=== PATIENT | male | born 1995 | race Caucasian/White ===

== ENCOUNTER 2016-07-12 16:09 | Inpatient (IN) | payer SELFPAY ==
[2016-07-12] MEDS ORDERED: KEPPRA 1,000 MG/NS 0.75% 100ML 1,000 MG/100 ML BAG IV ONE ×2 (17:13→17:25)
[2016-07-12] MEDS ORDERED: NACL 0.9% 1000 ML 1,000 ML ONE (17:13)
[2016-07-12] MEDS ORDERED: NACL 0.9% 1000 ML 1,000 ML IV ONE ×2 (17:25→18:49)
[2016-07-12 17:43] LABS: Bilirubin,Urine NEG (Negative); Blood,Urine NEG (Negative); Ketones,Urine 80 mg/dL (Negative); Leukocyte Esterase,Urine NEG (Negative); Mucus,Urine FEW /HPF; Nitrite,Urine NEG (Negative); Protein,Urine <15 mg/dL mg/dL (Negative); Urobilinogen,Urine < 2.0 mg/dL (<2.0); WBC,Urine < 1.0 /HPF (0.0-6.0)
[2016-07-12 18:13] LABS: Basophils % (Auto) 0.1 % (0.0-1.8); Eosinophils % (Auto) 0.1 % (0.0-4.3); Hematocrit 45.5 % (35.5-45.6); Hemoglobin 15.1 gm/dl (11.8-15.2); Mean Corpuscular HGB Conc 33 % (32-34); Mean Corpuscular Hemoglobin 31 pg (28-32); Mean Corpuscular Volume 93 fl (84-94); Platelet Count 186 K/mm3 (140-440); Red Blood Count 4.91 M/mm3 (3.65-5.03); Red Cell Distribution Width 12.8 % (13.2-15.2); White Blood Count 8.1 K/mm3 (4.5-11.0)
[2016-07-12 18:17] LABS: Anion Gap 30 mmol/L; Blood Urea Nitrogen 13 mg/dL (9-20); Calcium 7.9 mg/dL (8.4-10.2); Carbon Dioxide 16 mmol/L (22-30); Chloride 92.4 mmol/L (98-107); Potassium 4.5 mmol/L (3.6-5.0); Sodium 134 mmol/L (137-145)
[2016-07-12 18:21] LABS: Glucose 653 mg/dL (75-100)
[2016-07-12] MEDS ORDERED: D50W (25GM) IV PRN ×3 (18:27→19:07)
--- NOTE | 2016-07-12 18:29 | Emergency Department Report ---
ED General Adult HPI - General Chief complaint: Hyperglycemia Stated complaint: SEIZURE/HBP Time Seen by Provider: 07/12/16 18:18 Source: patient, family Mode of arrival: Stretcher Limitations: No Limitations - History of Present Illness Initial comments: This is a 20-year-old male, previously unknown to me. Has a past medical history of epilepsy, diabetic ketoacidosis, DKA, diabetes, atraumatic brain injury. Recently moved here from [place]. Presents to the ER complaining of malaise, fatigue, sensation of having recurrent episode of DKA. Patient reports she is feeling nauseous but has not vomited. Positive abdominal cramping. Reports that he had a seizure today. Prior to the seizure , did not have a sudden thunderclap headache. He does admit to mild shoulder discomfort, chest wall discomfort, headache. Symptoms are constant. They worse with physical exertion, decreased with rest. Patient denies dietary indiscretions. Patient reports compliance with medications. Patient reports nausea, diarrhea, feeling like he has a stomach bug. -: Sudden Severity scale (0 -10): 0 Consistency: constant Improves with: none Worsens with: none Associated Symptoms: headaches, loss of appetite, malaise, weakness - Related Data Home Medications Medication Instructions Recorded Confirmed Last Taken Insulin Aspart [Novolog Flexpen] 60 unit SQ QHS 07/12/16 07/12/16 07/11/16 Insulin Detemir [Levemir VIAL] 0 unit SQ QHS 07/12/16 07/12/16 07/11/16 levETIRAcetam [Keppra TAB] 1,000 mg PO BID 07/12/16 07/12/16 07/11/16 Allergies Allergy/AdvReac Type Severity Reaction Status Date / Time No Known Allergies Allergy Verified 07/12/16 16:43 ED Review of Systems ROS: Stated complaint: SEIZURE/HBP Other details as noted in HPI Constitutional: malaise, weakness Eyes: denies: vision change ENT: denies: epistaxis Respiratory: denies: cough Cardiovascular: as per HPI Gastrointestinal: nausea Genitourinary: frequency. denies: testicular pain Musculoskeletal: denies: back pain Skin: denies: lesions Neurological: weakness. denies: confusion Psychiatric: anxiety ED Past Medical Hx - Past Medical History Hx Diabetes: Yes (IDDM) Hx Seizures: Yes - Social History Smoking Status: Never Smoker Substance Use Type: None - Medications Home Medications: Home Medications Medication Instructions Recorded Confirmed Last Taken Type Insulin Aspart [Novolog Flexpen] 60 unit SQ QHS 07/12/16 07/12/16 07/11/16 History Insulin Detemir [Levemir VIAL] 0 unit SQ QHS 07/12/16 07/12/16 07/11/16 History levETIRAcetam [Keppra TAB] 1,000 mg PO BID 07/12/16 07/12/16 07/11/16 History ED Physical Exam - General Limitations: No Limitations General appearance: alert, in no apparent distress - Head Head exam: Present: atraumatic, normocephalic - Eye Eye exam: Present: normal appearance, PERRL, EOMI. Absent: nystagmus - ENT ENT exam: Present: normal exam, mucous membranes dry, mucous membranes moist, TM 's normal bilaterally, normal external ear exam - Neck Neck exam: Present: normal inspection, full ROM. Absent: tenderness, meningismus - Respiratory Respiratory exam: Present: normal lung sounds bilaterally. Absent: respiratory distress, wheezes, rales, rhonchi, stridor, chest wall tenderness, accessory muscle use - Cardiovascular Cardiovascular Exam: Present: regular rate, normal rhythm, normal heart sounds. Absent: bradycardia, tachycardia, irregular rhythm, systolic murmur, diastolic murmur, rubs, gallop - GI/Abdominal GI/Abdominal exam: Present: soft, normal bowel sounds. Absent: distended, tenderness, guarding, rebound, rigid, diminished bowel sounds, pulsatile mass - Rectal Rectal exam: Present: deferred - Extremities Exam Extremities exam: Present: normal inspection, full ROM, normal capillary refill. Absent: tenderness, pedal edema, joint swelling, calf tenderness - Back Exam Back exam: Present: normal inspection, full ROM. Absent: tenderness, CVA tenderness (R), CVA tenderness (L), muscle spasm, paraspinal tenderness, vertebral tenderness - Neurological Exam Neurological exam: Present: alert, oriented X3, other (Extraocular movements intact. Tongue midline. No facial droop. Facial sensation intact to light touch in the V1, V2, V3 distribution bilaterally. 5 and 5 strength in 4 extremities.. Sensation is intact to light touch in 4 extremities.). Absent: motor sensory deficit - Psychiatric Psychiatric exam: Present: normal affect, normal mood - Skin Skin exam: Present: warm, dry, intact, normal color. Absent: rash ED Course Vital Signs 07/12/16 07/12/16 07/12/16 16:38 17:13 18:01 Temperature 97.7 F Pulse Rate 96 H 101 H Respiratory 18 16 16 Rate Blood Pressure 133/79 Blood Pressure 112/76 [Left] O2 Sat by Pulse 99 99 99 Oximetry 07/12/16 19:45 Temperature Pulse Rate 84 Respiratory 17 Rate Blood Pressure Blood Pressure 110/67 [Left] O2 Sat by Pulse 99 Oximetry - Reevaluation(s) Reevaluation #1: 07/12/16 19:57 Differential diagnosis: Diabetic ketoacidosis, breakthrough seizure, viral syndrome, pneumonia, urinary tract infection, intracranial injury Assessment and plan: 20-year-old male with a GCS of 15, NIH score of 0, breakthrough seizure, diabetic ketoacidosis. Etiology of breakthrough seizure most likely metabolic derangement in the context of diabetic ketoacidosis. He is clinically sober, with no midline cervical spine pain or tenderness. Patient is clinically sober at this time. The cervical spine is cleared through nexus and macanese c spine rule Patient was loaded with Keppra, IV fluids, insulin, started on an insulin drip. Noncontrast CAT scan of the head was negative. X-ray of the chest was negative. Case was discussed with the Hospital physician, Dr. Montana, who accepted the patient to his service. ED Medical Decision Making - Lab Data Result diagrams: 07/12/16 17:38 07/12/16 17:38 Vital Signs 07/12/16 07/12/16 07/12/16 16:38 17:13 18:01 Temperature 97.7 F Pulse Rate 96 H 101 H Respiratory 18 16 16 Rate Blood Pressure 133/79 Blood Pressure 112/76 [Left] O2 Sat by Pulse 99 99 99 Oximetry 07/12/16 19:45 Temperature Pulse Rate 84 Respiratory 17 Rate Blood Pressure Blood Pressure 110/67 [Left] O2 Sat by Pulse 99 Oximetry Lab Results 07/12/16 07/12/16 07/12/16 Range/Units 16:28 17:26 17:38 WBC 8.1 (4.5-11.0) K/mm3 RBC 4.91 (3.65-5.03) M/mm3 Hgb 15.1 (11.8-15.2) gm/dl Hct 45.5 (35.5-45.6) % MCV 93 (84-94) fl MCH 31 (28-32) pg MCHC 33 (32-34) % RDW 12.8 L (13.2-15.2) % Plt Count 186 (140-440) K/mm3 Lymph % (Auto) 12.5 L (13.4-35.0) % Grant % (Auto) 6.9 (0.0-7.3) % Eos % (Auto) 0.1 (0.0-4.3) % Baso % (Auto) 0.1 (0.0-1.8) % Lymph # 1.0 L (1.2-5.4) K/mm3 Grant # 0.6 (0.0-0.8) K/mm3 Eos # 0.0 (0.0-0.4) K/mm3 Baso # 0.0 (0.0-0.1) K/mm3 Seg Neutrophils % 80.4 H (40.0-70.0) % Seg Neutrophils # 6.5 (1.8-7.7) K/mm3 VBG pH (7.320-7.420) Sodium (137-145) mmol/L Potassium (3.6-5.0) mmol/L Chloride (98-107) mmol/L Carbon Dioxide (22-30) mmol/L Anion Gap mmol/L BUN (9-20) mg/dL Creatinine (0.8-1.5) mg/dL Estimated GFR ml/min BUN/Creatinine Ratio % Glucose (75-100) mg/dL POC Glucose > 500 H (70-105) Calcium (8.4-10.2) mg/dL Urine Color Straw (Yellow) Urine Turbidity Clear (Clear) Urine pH 5.0 (5.0-7.0) Ur Specific Sawyer 1.016 (1.003-1.030) Urine Protein <15 mg/dl (Negative) mg/dL Urine Glucose (UA) >=500 (Negative) mg/dL Urine Ketones 80 (Negative) mg/dL Urine Blood Neg (Negative) Urine Nitrite Neg (Negative) Urine Bilirubin Neg (Negative) Urine Urobilinogen < 2.0 (<2.0) mg/dL Ur Leukocyte Esterase Neg (Negative) Urine WBC (Auto) < 1.0 (0.0-6.0) /HPF Urine RBC (Auto) 2.0 (0.0-6.0) /HPF Urine Mucus Few /HPF Ketones (0.2-2.8) mg/dL 07/12/16 07/12/16 Range/Units 17:38 17:38 WBC (4.5-11.0) K/mm3 RBC (3.65-5.03) M/mm3 Hgb (11.8-15.2) gm/dl Hct (35.5-45.6) % MCV (84-94) fl MCH (28-32) pg MCHC (32-34) % RDW (13.2-15.2) % Plt Count (140-440) K/mm3 Lymph % (Auto) (13.4-35.0) % Grant % (Auto) (0.0-7.3) % Eos % (Auto) (0.0-4.3) % Baso % (Auto) (0.0-1.8) % Lymph # (1.2-5.4) K/mm3 Grant # (0.0-0.8) K/mm3 Eos # (0.0-0.4) K/mm3 Baso # (0.0-0.1) K/mm3 Seg Neutrophils % (40.0-70.0) % Seg Neutrophils # (1.8-7.7) K/mm3 VBG pH 7.217 L (7.320-7.420) Sodium 134 L (137-145) mmol/L Potassium 4.5 (3.6-5.0) mmol/L Chloride 92.4 L (98-107) mmol/L Carbon Dioxide 16 L (22-30) mmol/L Anion Gap 30 mmol/L BUN 13 (9-20) mg/dL Creatinine 1.0 (0.8-1.5) mg/dL Estimated GFR > 60 ml/min BUN/Creatinine Ratio 13.00 % Glucose 653 H* (75-100) mg/dL POC Glucose (70-105) Calcium 7.9 L (8.4-10.2) mg/dL Urine Color (Yellow) Urine Turbidity (Clear) Urine pH (5.0-7.0) Ur Specific Sawyer (1.003-1.030) Urine Protein (Negative) mg/dL Urine Glucose (UA) (Negative) mg/dL Urine Ketones (Negative) mg/dL Urine Blood (Negative) Urine Nitrite (Negative) Urine Bilirubin (Negative) Urine Urobilinogen (<2.0) mg/dL Ur Leukocyte Esterase (Negative) Urine WBC (Auto) (0.0-6.0) /HPF Urine RBC (Auto) (0.0-6.0) /HPF Urine Mucus /HPF Ketones 67.0 H (0.2-2.8) mg/dL - EKG Data 07/12/16 19:58 normal sinus, 93 bpm, borderline rightward axis, incomplete right bundle branch block, not morphologically consistent with STEMI, there is no prior EKG available for comparison - Radiology Data Radiology results: report reviewed, image reviewed X-ray chest negative. Noncontrast CAT scan of the head is negative Critical Care Time: Yes Critical care time in (mins) excluding proc time.: 35 Critical care attestation.: If time is entered above; I have spent that time in minutes in the direct care of this critically ill patient, excluding procedure time. Critical Care Time: Critical care time includes multiple bedside evaluations, interpretation of laboratory studies, radiology studies, time spent managing a patient with diabetic ketoacidosis, requiring consultation with hospital medicine, and initiation of insulin drip. This excludes procedure time. ED Disposition Clinical Impression: DKA (diabetic ketoacidoses), Seizure Disposition: OP ADMITTED IP TO THIS HOSP Is pt being admited?: Yes Condition: Good
[2016-07-12] MEDS ORDERED: DULCOLAX PR PRN (18:49)
[2016-07-12] MEDS ORDERED: ALUM-MAG HYDROX-SIMETH 200-200-20MG/5ML PO PRN (18:49)
[2016-07-12] MEDS ORDERED: MILK OF MAGNESIA PO PRN (18:49)
[2016-07-12] MEDS ORDERED: ATIVAN IV PRN (18:55)
[2016-07-12] MEDS ORDERED: NovoLIN R 100 UNITS in NACL 0.9% 99 ML IV SCH ×3 (19:00→20:00)
--- NOTE | 2016-07-12 19:07 | History and Physical Report ---
History of Present Illness Date of examination: 07/12/16 Date of admission: 07/12/16 Chief complaint: seizure, DKA History of present illness: Patient is a 20 year old with hx of brain hematoma 2014 following a seizure episode, epilepsy, DM type 1 diagnosed at age 10, and recurrent admissions in the hospital for both DKA and Epilepsy about 30-40 in the last year. He presents to the ER today accompanied by the mother with the report of Seizure x 1 today witnessed by the mother, tonic clonic and in the ER noted to be in DKA with a blood glucose of >550. Patient had a 10-15 mins Post ictal state that has resolved. He denies any chest pain, nausea, vomiting, diarrhea, fever. The mother reports that in the past attempts to change medications has resulted in prolonged hospitalization due to worsening Blood glucose or repeat seizure. ROS Constitutional: No fever, fatigue or weight loss. Skin: No rash. Eyes: No recent vision problems or eye pain. ENT: No congestion, ear pain, or sore throat. Endocrine: No thyroid problems. Cardiovascular: No chest pain. Respiratory: No cough, shortness of breath, congestion, or wheezing. Gastrointestinal: No abdominal pain, nausea, vomiting, or diarrhea. Genitourinary: No dysuria. Musculoskeletal: No joint swelling. Neurologic: Reports seizures. Hematologic: No unusual bruising or bleeding. Psychiatric: No psychiatric problems, hallucinations or depression. All other systems reviewed and otherwise negative. Past History Past Medical History: diabetes, seizures Social history: lives with family, smoking Family history: no significant family history Medications and Allergies Allergies Allergy/AdvReac Type Severity Reaction Status Date / Time No Known Allergies Allergy Verified 07/12/16 16:43 Home Medications Medication Instructions Recorded Confirmed Last Taken Type Insulin Aspart [Novolog Flexpen] 60 unit SQ QHS 07/12/16 07/12/16 07/11/16 History Insulin Detemir [Levemir VIAL] 0 unit SQ QHS 07/12/16 07/12/16 07/11/16 History levETIRAcetam [Keppra TAB] 1,000 mg PO BID 07/12/16 07/12/16 07/11/16 History Active Meds: Active Medications Al Hydrox/Mg Hydrox/Simethicone (Alum-Mag Hydrox-Simeth [id number]/5ml) 30 ml PO Q4H PRN PRN Reason: Indigestion Bisacodyl (Dulcolax) 10 mg MS QDAY PRN PRN Reason: constipation unrelieved by MOM Dextrose (D50w (25gm)) 0 ml IV PRN PRN PRN Reason: Hypoglycemia Dextrose (D50w (25gm)) 0 ml IV PRN PRN PRN Reason: Hypoglycemia Dextrose (D50w (25gm)) 0 ml IV ONCE PRN PRN Reason: Hypoglycemia Potassium Chloride/Dextrose/Sod Cl (D5w/0.45% Nacl/Kcl 20 Meq) 20 meq in 1,000 mls @ 125 mls/hr IV DIRECT ALBERTO Insulin Human Regular 100 (units/ Sodium Chloride) 100 mls @ 1 mls/hr IV TITR ALBERTO; 1 UNITS/HR PRN Reason: Protocol Sodium Chloride (Nacl 0.9% 1000 Ml) mls @ 999 mls/hr IV ONCE ONE Stop: 07/12/16 18:50 Insulin Human Regular 100 (units/ Sodium Chloride) mls @ IV TITR ALBERTO; 1 UNITS /HR PRN Reason: Protocol Insulin Human Regular 100 (units/ Sodium Chloride) mls @ IV TITR ALBERTO; 1 UNITS /HR PRN Reason: Protocol Levetiracetam 1,000 mg/ (Dextrose) mls @ 400 mls/hr IV BID ALBERTO Lorazepam (Ativan) 1 mg IV Q4H PRN PRN Reason: Seizures Magnesium Hydroxide (Milk Of Magnesia) 30 ml PO Q4H PRN PRN Reason: Constipation Exam - Physical Exam Narrative exam: VITAL SIGNS: Reviewed. GENERAL: The patient appeared well nourished and normally developed. Vital signs as documented. HEAD: No signs of head trauma. EYES: Pupils are equal. Extraocular motions intact. EARS: Hearing grossly intact. MOUTH: Oropharynx is normal. NECK: No adenopathy, no JVD. CHEST: Chest with clear breath sounds bilaterally. No wheezes, rales, or rhonchi. CARDIAC: Regular rate and rhythm. S1 and S2, without murmurs, gallops, or rubs. VASCULAR: No Edema. Peripheral pulses normal and equal in all extremities. ABDOMEN: Soft, without detectable tenderness. No sign of distention. No rebound or guarding, and no masses palpated. Bowel Sounds normal. MUSCULOSKELETAL: Good range of motion of all major joints. Extremities without clubbing, cyanosis or edema. NEUROLOGIC EXAM: Alert and oriented x 3. No focal sensory or strength deficits. Speech normal. Follows commands. PSYCHIATRIC: Mood normal. SKIN: No rash or lesions. - Constitutional Vitals: Temp Pulse Resp BP Pulse Ox 97.7 F 101 H 16 112/76 99 07/12/16 16:38 07/12/16 18:01 07/12/16 18:01 07/12/16 18:01 07/12/16 18:01 Results - Labs CBC & Chem 7: 07/12/16 17:38 07/12/16 17:38 Labs: Laboratory Last Values WBC 8.1 K/mm3 (4.5-11.0) 07/12/16 17:38 RBC 4.91 M/mm3 (3.65-5.03) 07/12/16 17:38 Hgb 15.1 gm/dl (11.8-15.2) 07/12/16 17:38 Hct 45.5 % (35.5-45.6) 07/12/16 17:38 MCV 93 fl (84-94) 07/12/16 17:38 MCH 31 pg (28-32) 07/12/16 17:38 MCHC 33 % (32-34) 07/12/16 17:38 RDW 12.8 % (13.2-15.2) L 07/12/16 17:38 Plt Count 186 K/mm3 (140-440) 07/12/16 17:38 Lymph % (Auto) 12.5 % (13.4-35.0) L 07/12/16 17:38 Williamson % (Auto) 6.9 % (0.0-7.3) 07/12/16 17:38 Eos % (Auto) 0.1 % (0.0-4.3) 07/12/16 17:38 Baso % (Auto) 0.1 % (0.0-1.8) 07/12/16 17:38 Lymph # 1.0 K/mm3 (1.2-5.4) L 07/12/16 17:38 Williamson # 0.6 K/mm3 (0.0-0.8) 07/12/16 17:38 Eos # 0.0 K/mm3 (0.0-0.4) 07/12/16 17:38 Baso # 0.0 K/mm3 (0.0-0.1) 07/12/16 17:38 Seg Neutrophils % 80.4 % (40.0-70.0) H 07/12/16 17:38 Seg Neutrophils # 6.5 K/mm3 (1.8-7.7) 07/12/16 17:38 VBG pH 7.217 (7.320-7.420) L 07/12/16 17:38 Sodium 134 mmol/L (137-145) L 07/12/16 17:38 Potassium 4.5 mmol/L (3.6-5.0) 07/12/16 17:38 Chloride 92.4 mmol/L (98-107) L 07/12/16 17:38 Carbon Dioxide 16 mmol/L (22-30) L 07/12/16 17:38 Anion Gap 30 mmol/L 07/12/16 17:38 BUN 13 mg/dL (9-20) 07/12/16 17:38 Creatinine 1.0 mg/dL (0.8-1.5) 07/12/16 17:38 Estimated GFR > 60 ml/min 07/12/16 17:38 BUN/Creatinine Ratio 13.00 % 07/12/16 17:38 Glucose 653 mg/dL (75-100) H* 07/12/16 17:38 POC Glucose > 500 (70-105) H 07/12/16 16:28 Calcium 7.9 mg/dL (8.4-10.2) L 07/12/16 17:38 Urine Color Straw (Yellow) 07/12/16 17:26 Urine Turbidity Clear (Clear) 07/12/16 17:26 Urine pH 5.0 (5.0-7.0) 07/12/16 17:26 Ur Specific Koppel 1.016 (1.003-1.030) 07/12/16 17:26 Urine Protein <15 mg/dl mg/dL (Negative) 07/12/16 17:26 Urine Glucose (UA) >=500 mg/dL (Negative) 07/12/16 17:26 Urine Ketones 80 mg/dL (Negative) 07/12/16 17:26 Urine Blood Neg (Negative) 07/12/16 17:26 Urine Nitrite Neg (Negative) 07/12/16 17:26 Urine Bilirubin Neg (Negative) 07/12/16 17:26 Urine Urobilinogen < 2.0 mg/dL (<2.0) 07/12/16 17:26 Ur Leukocyte Esterase Neg (Negative) 07/12/16 17:26 Urine WBC (Auto) < 1.0 /HPF (0.0-6.0) 07/12/16 17:26 Urine RBC (Auto) 2.0 /HPF (0.0-6.0) 07/12/16 17:26 Urine Mucus Few /HPF 07/12/16 17:26 Ketones 67.0 mg/dL (0.2-2.8) H 07/12/16 17:38 - Imaging and Cardiology Chest x-ray: image reviewed (no acute pathology) CT Scan - head: image reviewed (no acute pathology) Assessment and Plan Assessment and plan: Patient is a 20 year old with hx of brain hematoma 2013 following a seizure episode, epilepsy, DM type 1 diagnosed at age 10, and recurrent admissions in the hospital for both DKA and Epilepsy about 30-40 in the last year. He presents to the ER today accompanied by the mother with the report of Seizure x 1 today witnessed by the mother, tonic clonic and in the ER noted to be in DKA with a blood glucose of >550. Patient had a 10-15 mins Post ictal state that has resolved. He denies any chest pain, nausea, vomiting, diarrhea, fever. The mother reports that in the past attempts to change medications has resulted in prolonged hospitalization due to worsening Blood glucose or repeat seizure. * DKA * Generalized Tonic clonic Seizure * Metabolic acidosis * IDDM PLAN: * Admit to ICU * Start on DKA protocol * Monitor and manage electrolyte * patient is on levemir 60 units at bedtime and also on high dose Novolog sliding scale * Seizure precautions * Keppra IV BID * Neurology consult * case management to assist family * Consult dairy nutritionist. * DVT/GI prophylaxis The high probability of a clinically significant, sudden or life threatening deterioration of the [endocrine, Neurology ] system(s) required my full and direct attention, intervention and personal management. The aggregate critical care time was [35] minutes. This time is in addition to time spent performing reported procedures but includes the following: [x] Data Review and interpretation [x] Patient assessment and monitoring of vital signs [x] Documentation [x] Medication orders and management Advance Directives: Yes Plan of care discussed with patient/family: Yes
--- NOTE | 2016-07-12 19:17 | Cat Scan Report ---
FINAL REPORT PROCEDURE: CT HEAD/BRAIN WO CON TECHNIQUE: Computerized tomography of the head was performed without contrast material. HISTORY: seizure COMPARISON: No prior studies are available for comparison. FINDINGS: No CT evidence of intracranial mass, hemorrhage, acute territorial infarction, or hydrocephalus. The intracranial arteries are symmetric in density. Calvarium is intact. Visualized paranasal sinuses and mastoids are aerated IMPRESSION: No CT evidence of acute intracranial abnormality
--- NOTE | 2016-07-12 19:25 | Admit Criteria Form ---
Admission Criteria Documentation: DIABETES Clinical Indications for Admission to Inpatient Care (Place 'X' for any and all applicable criteria): Admission is indicated by presence of ALL (if I & II) or ANY ONE (if III or IV) of the following (1)(2)(3)(4): [ X]I. Diabetes is uncontrolled as indicated by ANY ONE of the following: [ X]a) Diabetic ketoacidosis as indicated by ALL of the following (8): [X ]i) Hyperglycemia (eg, plasma glucose greater than 200 mg /dL (11.1 mmol/L)) [X ]ii) Acidosis (eg, arterial pH less than 7.30, serum bicarbonate level less than 15 mEq/L (mmol/L)) [X ]iii) Moderate ketonuria or ketonemia [ ]b) Hyperglycemic hyperosmolar state as indicated by ALL of the following(9)(10): [ ]i) Neurologic dysfunction (eg, stupor, coma, hemiparesis , seizure)(13) [ ]ii) Plasma glucose greater than 600 mg/dL (33.3 mmol/L) [ ]iii) Serum osmolality greater than 320 mOsm/kg (mmol/kg) [ ]c) Severe signs or symptoms secondary to hyperglycemia indicated by ANY ONE of the following: [ ]i) Altered mental status(10) [ ]ii) Significant hypovolemia or dehydration [ ]iii) Intractable nausea or vomiting [ ]iv) Unexplained fever or severe infection [ ]v) Severe electrolyte abnormality (eg, hypokalemia, hyperkalemia, hypernatremia) [X ]II. Management at other levels of care (Also use Diabetes: Observation Care as appropriate) is not feasible because of ANY ONE of the following: [X ]a) Condition was not adequately corrected with treatment at other levels of care. [ ]b) Treatment at other levels of care is not appropriate because of condition severity (eg, hyperosmolar coma). [ ]III. Contraindications and/or Inappropriate clinical situations for Observational Care in patients with Diabetes, when ANY ONE of the following is required: [ ]a) Patient require specific diagnostic workup or therapeutic intervention 22 [ ]b) Patient with abnormal vital signs or altered mental status 23 [ ]IV. General contraindications and/or Inappropriate clinical situations for Observational Care in patients with Diabetes, when ANY ONE of the following is required: [ ]a) Prediction of prolongation of LOS based on ANY ONE of the following may be considered as a contraindication for observational care 2, 3, 4, 5, 6, 7, 8, 9, 10, 11 [ ]i) Age > 65 yrs. [ ]ii) Patient arriving by ambulance [ ]iii) Patient with high acuity [ ]iv) Patient requiring vital sign monitoring [ ]v) Patient on IV medication [ ]b) Systolic blood pressures 180mmHg 3,12 [ ]c) Patient with altered mental status including delirium and other alteration of consciousness, (3) [ ]d) Patient whose discharge disposition will be to a halfway home or rehabilitation home should not be managed in Emergency Department Observation Unit. CMS rule requires 3 days hospital stay before such placement.3,13 [ ]e) Patient with failure to thrive due to broad array of etiologies 3,16,17 [ ]f) Inability to ambulate 3,14 Extended stay beyond goal length of stay may be needed for(3)(20): [ ]a) Treatment of precipitating causes [ ]b) Development of hypoglycemia [ ]c) Complications of treatment [ ]d) Complications of decompensated diabetes (eg, acute gastric dilatation, persistent metabolic or neurologic derangement) [ ]e) Active Comorbidities [ ]f) Older patients( 65 years or older) The original [employer] content created by [employer] has been revised. The portions of the content which have been revised are identified through the use of italic text or in bold,and [facility] has neither reviewed nor approved the modified material. All other unmodified content is copyright [employer]. Please see references footnoted in the original [employer] edition 2016 Admission Criteria Met: Yes
--- NOTE | 2016-07-12 20:40 | Magnetic Resonance Report ---
FINAL REPORT EXAM: MR MRA/MRV HEAD WO CON HISTORY: SEIZURE TECHNIQUE: MRA of the head was performed utilizing time of flight imaging. PRIORS: None. FINDINGS: The vertebrobasilar system is patent. No focal stenotic lesion is identified. There is a prominent posterior communicating artery on the left side. The left P1 segment is relatively diminutive in caliber, and there is suggestion of stenosis in portions of the left P1 segment. The distal internal carotid arteries, anterior cerebral arteries and middle cerebral arteries are patent. There is suggestion of stenosis in M2 and M3 branches on the right. No major branch occlusion is identified. IMPRESSION: 1. No major branch occlusion is identified. 2. Prominent posterior communicating artery is seen on the left side. Left P1 segment is relatively diminutive in caliber. There is suggestion of stenosis in portions of the left P1 segment. This may be developmental, but could be related to vasculitis in the proper clinical setting. 3. There is suggestion of stenosis in portions of the right M2 and M3 branches. Possibility of vasculitis is not excluded. The patient can be further assessed with catheter directed angiography if indicated.
[2016-07-12] MEDS ORDERED: KEPPRA 1,000 MG in D5W 100 ML IV SCH (22:00)
[2016-07-12 22:14] LABS: Anion Gap 21 mmol/L; BUN/Creatinine Ratio 13.75; Blood Urea Nitrogen 11 mg/dL (9-20); Calcium 8.4 mg/dL (8.4-10.2); Carbon Dioxide 22 mmol/L (22-30); Chloride 102.5 mmol/L (98-107); Glucose 193 mg/dL (75-100); Potassium 3.8 mmol/L (3.6-5.0); Sodium 142 mmol/L (137-145)
[2016-07-12 22:15] LABS: Magnesium 1.8 mg/dL (1.7-2.3); Phosphorous 1.7 mg/dL (2.5-4.5)
[2016-07-12] MEDS: D5W/0.45% NACL/KCL 20 MEQ 20 MEQ/1,000 ML BAG IV SCH (23:33)
[2016-07-13 00:38] LABS: Anion Gap 21 mmol/L; Blood Urea Nitrogen 10 mg/dL (9-20); Calcium 8.3 mg/dL (8.4-10.2); Carbon Dioxide 20 mmol/L (22-30); Chloride 101.1 mmol/L (98-107); Glucose 181 mg/dL (75-100); Potassium 3.4 mmol/L (3.6-5.0); Sodium 139 mmol/L (137-145)
[2016-07-13] MEDS ORDERED: KEPPRA 1,000 MG/NS 0.75% 100ML 1,000 MG/100 ML BAG IV SCH (05:00)
[2016-07-13 05:25] LABS: Basophils % (Auto) 0.6 % (0.0-1.8); Eosinophils % (Auto) 1.5 % (0.0-4.3); Hematocrit 41.9 % (35.5-45.6); Hemoglobin 14.1 gm/dl (11.8-15.2); Mean Corpuscular HGB Conc 34 % (32-34); Mean Corpuscular Hemoglobin 30 pg (28-32); Mean Corpuscular Volume 89 fl (84-94); Platelet Count 192 K/mm3 (140-440); Red Blood Count 4.69 M/mm3 (3.65-5.03); Red Cell Distribution Width 12.5 % (13.2-15.2); White Blood Count 6.2 K/mm3 (4.5-11.0)
[2016-07-13 05:51] LABS: Anion Gap 13 mmol/L; BUN/Creatinine Ratio 11.42; Blood Urea Nitrogen 8 mg/dL (9-20); Calcium 8.3 mg/dL (8.4-10.2); Carbon Dioxide 26 mmol/L (22-30); Chloride 101.7 mmol/L (98-107); Glucose 113 mg/dL (75-100); Potassium 3.2 mmol/L (3.6-5.0); Sodium 137 mmol/L (137-145)
[2016-07-13] MEDS ORDERED: K-DUR PO ONE ×2 (08:00→09:15)
[2016-07-13] MEDS: D5W/0.45% NACL/KCL 20 MEQ 20 MEQ/1,000 ML BAG IV SCH (08:00)
[2016-07-13 08:04] LABS: Anion Gap 14 mmol/L; BUN/Creatinine Ratio 11.42; Blood Urea Nitrogen 8 mg/dL (9-20); Carbon Dioxide 24 mmol/L (22-30); Chloride 102.2 mmol/L (98-107); Glucose 158 mg/dL (75-100); Potassium 3.2 mmol/L (3.6-5.0); Sodium 137 mmol/L (137-145)
--- NOTE | 2016-07-13 09:07 | XRay Report ---
AP CHEST: HISTORY: chest pain AP view of the chest demonstrates a normal mediastinal and cardiac contour with clear lungs and normal bony and soft tissue structures. IMPRESSION: Unremarkable AP chest.
[2016-07-13] MEDS ORDERED: TYLENOL PO PRN (09:35)
--- NOTE | 2016-07-13 10:10 | Consultation ---
History of Present Illness Consult date: 07/13/16 Requesting physician: JD ROLLINS Reason for consult: other (DKA) History of present illness: PULMONARY CONSULT NOTE (Full dictation # [id number]) Please see dictated notes for full details Past History Past Medical History: diabetes, seizures Social history: lives with family, smoking Family history: no significant family history Medications and Allergies Allergies Allergy/AdvReac Type Severity Reaction Status Date / Time No Known Allergies Allergy Verified 07/12/16 16:43 Home Medications Medication Instructions Recorded Confirmed Last Taken Type Insulin Aspart [Novolog Flexpen] 60 unit SQ QHS 07/12/16 07/12/16 07/11/16 History Insulin Detemir [Levemir VIAL] 0 unit SQ QHS 07/12/16 07/12/16 07/11/16 History levETIRAcetam [Keppra TAB] 1,000 mg PO BID 07/12/16 07/12/16 07/11/16 History Active Meds: Active Medications Acetaminophen (Tylenol) 650 mg PO Q6H PRN PRN Reason: Pain, Mild (1-3) Al Hydrox/Mg Hydrox/Simethicone (Alum-Mag Hydrox-Simeth 166-129-57dl/5ml) 30 ml PO Q4H PRN PRN Reason: Indigestion Bisacodyl (Dulcolax) 10 mg [place] QDAY PRN PRN Reason: constipation unrelieved by MOM Dextrose (D50w (25gm)) 0 ml IV ONCE PRN PRN Reason: Hypoglycemia Potassium Chloride/Dextrose/Sod Cl (D5w/0.45% Nacl/Kcl 20 Meq) 20 meq in 1,000 mls @ 125 mls/hr IV DIRECT ALBERTO Last Admin: 07/13/16 08:00 Dose: 125 mls/hr Insulin Human Regular 100 (units/ Sodium Chloride) 100 mls @ 1 mls/hr IV TITR ALBERTO; 1 UNITS/HR PRN Reason: Protocol Levetiracetam (Keppra 1,000 Mg/Ns 0.75% 100ml) 1,000 mg in 100 mls @ 0 mls/hr IV Q12H ALBERTO Last Admin: 07/13/16 05:51 Dose: 400 mls/hr Insulin Aspart (Novolog) 0 units SUB-Q AC ALBERTO PRN Reason: Protocol Insulin Detemir (Levemir) 60 units SUB-Q QHS ALBERTO Levetiracetam (Keppra) 1,000 mg PO BID ALBERTO Lorazepam (Ativan) 1 mg IV Q4H PRN PRN Reason: Seizures Magnesium Hydroxide (Milk Of Magnesia) 30 ml PO Q4H PRN PRN Reason: Constipation Physical Examination Vital signs: Vital Signs Temp Pulse Resp BP Pulse Ox 97.7 F 96 H 18 133/79 99 07/12/16 16:38 07/12/16 16:38 07/12/16 16:38 07/12/16 16:38 07/12/16 16:38 Results - Laboratory Findings CBC and BMP: 07/13/16 04:48 07/13/16 10:03 Abnormal lab findings: Abnormal Labs 07/12/16 07/12/16 07/12/16 20:21 21:32 21:42 RDW Lymph % (Auto) [place] % (Auto) Potassium Carbon Dioxide BUN Creatinine Glucose POC Glucose 315 H 200 H Calcium Phosphorus 1.7 L 07/12/16 07/12/16 07/13/16 21:42 23:18 00:06 RDW Lymph % (Auto) [place] % (Auto) Potassium 3.4 L Carbon Dioxide 20 L BUN Creatinine Glucose 193 H 181 H POC Glucose 149 H Calcium 8.3 L Phosphorus 07/13/16 07/13/16 07/13/16 00:21 01:02 02:11 RDW Lymph % (Auto) [place] % (Auto) Potassium Carbon Dioxide BUN Creatinine Glucose POC Glucose 206 H 279 H 275 H Calcium Phosphorus 07/13/16 07/13/16 07/13/16 03:14 04:24 04:48 RDW Lymph % (Auto) [place] % (Auto) Potassium 3.2 L Carbon Dioxide BUN 8 L Creatinine 0.7 L Glucose 113 H POC Glucose 166 H 120 H Calcium 8.3 L Phosphorus 07/13/16 07/13/16 07/13/16 04:48 05:15 06:15 RDW 12.5 L Lymph % (Auto) 38.3 H [place] % (Auto) 11.5 H Potassium Carbon Dioxide BUN Creatinine Glucose POC Glucose 108 H 124 H Calcium Phosphorus 07/13/16 07/13/16 07/13/16 06:55 07:07 07:20 RDW Lymph % (Auto) [place] % (Auto) Potassium 3.2 L Carbon Dioxide BUN 8 L Creatinine 0.7 L Glucose 158 H POC Glucose 151 H 151 H Calcium 8.0 L Phosphorus 07/13/16 07/13/16 07/13/16 08:02 09:10 09:58 RDW Lymph % (Auto) [place] % (Auto) Potassium Carbon Dioxide BUN Creatinine Glucose POC Glucose 120 H 132 H 170 H Calcium Phosphorus
[2016-07-13] MEDS: KEPPRA PO SCH ×2 (10:12→22:01)
[2016-07-13] MEDS ORDERED: LEVEMIR SUB-Q SCH ×2 (11:00→22:00)
[2016-07-13 11:07] LABS: Anion Gap 21 mmol/L; BUN/Creatinine Ratio 13.33; Blood Urea Nitrogen 8 mg/dL (9-20); Calcium 7.9 mg/dL (8.4-10.2); Carbon Dioxide 18 mmol/L (22-30); Chloride 102.9 mmol/L (98-107); Glucose 165 mg/dL (75-100); Potassium 3.6 mmol/L (3.6-5.0); Sodium 138 mmol/L (137-145)
[2016-07-13] MEDS: NOVOLOG SUB-Q SCH ×2 (11:52→18:21)
--- NOTE | 2016-07-13 13:29 | Consultation ---
CONSULTING PHYSICIAN: Hemant Montana MD REASON FOR CONSULTATION: Diabetic ketoacidosis, need for IV insulin therapy. CHIEF COMPLAINT AND HISTORY OF PRESENT ILLNESS: The patient is a 20-year-old male with past medical history significant for a diagnosis of diabetes and which he is on insulin therapy at home. He admits to running out of his Levemir insulin and not using it. He tells me for just a couple of days or so. He had a seizure yesterday. He does have a history of epilepsy. He came to the Emergency Room postictal complaining of fatigue, polydipsia, and polyuria, nausea, no vomiting, abdominal cramping. He was evaluated and found to be in diabetic ketoacidosis and ICU admission was requested. When I stopped by to see him. He made an IV insulin drip at 3 units per minute. He was feeling a little bit better, complaining of some generalized pain, upper body and back: The patient denies tobacco use or abuse history whatsoever. Denies any sores or blisters in his body or any wounds. That really is as much of the history of presentation as I have. PAST MEDICAL HISTORY: Again, significant for diabetes, history of seizures. PAST SURGICAL HISTORY: None. MEDICATIONS: He was on at the time I stopped by to see him, according to the medication administration record included the following: Tylenol 650 mg p.o. q. 6 hours p.r.n. mild pain, Dulcolax p.r.n., insulin drip at 3 units per minute, Keppra 1 gram p.o. b.i.d., p.r.n. Ativan 1 mg IV q. 4 hours p.r.n. seizures, and p.r.n. milk of magnesia. ALLERGIES: No known drug allergies. DIET: Thin gentleman. Denies acute weight loss or gain in the preceding few weeks to months. FAMILY AND SOCIAL HISTORY: Lives in the community. No alcohol, tobacco, or illicit drug use or abuse. I believe his mother is in the room. Family history otherwise noncontributory. REVIEW OF SYSTEMS: No loss of consciousness. No new onset focal weakness. He did have the seizures. No gross hematochezia or melena. No gross hematuria or dysuria. Denies chest pains or palpitations. He had some nausea, no vomiting. Complete review of systems obtained. Pertinent positives and/or negatives as in body of history above, otherwise noncontributory. PHYSICAL EXAMINATION: VITAL SIGNS: At presentation, he was afebrile, temperature 97.7, pulse was 96, respiratory rate 18, blood pressure 133/79, oxygen sats 99%, inspired oxygen concentration was not recorded. HEAD, EYES, EARS, NOSE, AND THROAT: Pupils are equal, round, about 3-4 mm, reactive to light. Extraocular muscle movements appeared intact. Grossly, there were no palpable lymph nodes in the supraclavicular or submandibular lymph node chains. LUNGS: Auscultation of both lung herring unremarkable. Lungs are clear bilaterally. HEART: Heart sounds 1 and 2 are heard, regular rate and rhythm at the time of my evaluation. ABDOMEN: Soft, full, flat. Bowel sounds are positive, mildly tender. EXTREMITIES: Without overt digital clubbing, cyanosis, or pedal edema. NEUROLOGIC: The exam was grossly nonfocal. LABORATORY DATA: From my review are as follows: Admission white cell count 8100 with a hemoglobin of 15.1, hematocrit of 45.5, and platelets of 186. Venous blood gas showed a pH of 7.22. Serum sodium was 134, potassium 4.5, chloride 92, bicarbonate 16, BUN 13, creatinine 1.0. Glucose was 653. Phosphorus was low at 1.7. Magnesium 1.8. Urinalysis was negative for nitrites and leukocyte esterase. Urine culture was elevated at 67. Anion gap was 30 at presentation. Radiographic studies have been reviewed. CT of the brain was done, it was negative for acute intracranial process. A chest x-ray was done, I am trying to pull up that image. The radiology interpretation is that it is an unremarkable chest x-ray. ASSESSMENT AND PLAN: We have a young gentleman unfortunately noncompliant with his medications at home and in with diabetic ketoacidosis. He is doing better. Plan will be to transition him to a long acting insulin therapy as well as sliding scale and hopefully get him off the drip and at that point, he can be transferred to the medical floor. Better compliance has been encouraged. Continued tobacco abstinence has been counseled. He will be placed on GI and DVT prophylaxis. Flu and pneumonia vaccination will be per protocol. Thank you very much for the consult Dr. Montana. We will follow along and make further recommendations as picture progresses/becomes clearer. NIKKI: 07/13/2016 11:30 JOB# [id number] MIMI/NTS
--- NOTE | 2016-07-13 17:13 | Progress Note ---
Assessment and Plan Assessment and plan: Patient is a 20 year old with hx of brain hematoma 2013 following a seizure episode, epilepsy, DM type 1 diagnosed at age 10, and recurrent admissions in the hospital for both DKA and Epilepsy about 30-40 in the last year. He presents to the ER today accompanied by the mother with the report of Seizure x 1 today witnessed by the mother, tonic clonic and in the ER noted to be in DKA with a blood glucose of >550. Patient had a 10-15 mins Post ictal state that has resolved. He denies any chest pain, nausea, vomiting, diarrhea, fever. The mother reports that in the past attempts to change medications has resulted in prolonged hospitalization due to worsening Blood glucose or repeat seizure. * DKA-resolved * Generalized Tonic clonic Seizure * Metabolic acidosis-improving * IDDM PLAN: * I have transitioned patient out of the ICU today. * I'll initially start the patient on high-dose sliding scale but would decrease this to low-dose blood sugar is 92. We'll also reduce his nighttime dose from 60 of Levemir to 40. Patient has remained seizure free will plan on discharge in a.m. if stable. * case management to assist family * DVT/GI prophylaxis History Interval history: Follow-up; patient admitted with DKA and seizure Patient seen and examined this morning in no acute distress Denies any chest pain, nausea, vomiting, diarrhea No fever noted blood pressure controlled No adverse events reported to me by nursing staff Hospitalist Physical - Physical exam Narrative exam: VITAL SIGNS: Reviewed. GENERAL: The patient appeared well nourished and normally developed. Vital signs as documented. HEAD: No signs of head trauma. EYES: Pupils are equal. Extraocular motions intact. EARS: Hearing grossly intact. MOUTH: Oropharynx is normal. NECK: No adenopathy, no JVD. CHEST: Chest with clear breath sounds bilaterally. No wheezes, rales, or rhonchi. CARDIAC: Regular rate and rhythm. S1 and S2, without murmurs, gallops, or rubs. VASCULAR: No Edema. Peripheral pulses normal and equal in all extremities. ABDOMEN: Soft, without detectable tenderness. No sign of distention. No rebound or guarding, and no masses palpated. Bowel Sounds normal. MUSCULOSKELETAL: Good range of motion of all major joints. Extremities without clubbing, cyanosis or edema. NEUROLOGIC EXAM: Alert and oriented x 3. No focal sensory or strength deficits. Speech normal. Follows commands. PSYCHIATRIC: Mood normal. SKIN: No rash or lesions. - Constitutional Vitals: Temp Pulse Resp BP Pulse Ox 98.2 F 81 18 104/65 98 07/13/16 16:10 07/13/16 16:10 07/13/16 16:10 07/13/16 16:10 07/13/16 16:57 Results - Labs CBC & Chem 7: 07/13/16 04:48 07/13/16 10:03 Labs: Laboratory Last Values WBC 6.2 K/mm3 (4.5-11.0) 07/13/16 04:48 RBC 4.69 M/mm3 (3.65-5.03) 07/13/16 04:48 Hgb 14.1 gm/dl (11.8-15.2) 07/13/16 04:48 Hct 41.9 % (35.5-45.6) 07/13/16 04:48 MCV 89 fl (84-94) D 07/13/16 04:48 MCH 30 pg (28-32) 07/13/16 04:48 MCHC 34 % (32-34) 07/13/16 04:48 RDW 12.5 % (13.2-15.2) L 07/13/16 04:48 Plt Count 192 K/mm3 (140-440) 07/13/16 04:48 Lymph % (Auto) 38.3 % (13.4-35.0) H 07/13/16 04:48 [place] % (Auto) 11.5 % (0.0-7.3) H 07/13/16 04:48 Eos % (Auto) 1.5 % (0.0-4.3) 07/13/16 04:48 Baso % (Auto) 0.6 % (0.0-1.8) 07/13/16 04:48 Lymph # 2.4 K/mm3 (1.2-5.4) 07/13/16 04:48 [place] # 0.7 K/mm3 (0.0-0.8) 07/13/16 04:48 Eos # 0.1 K/mm3 (0.0-0.4) 07/13/16 04:48 Baso # 0.0 K/mm3 (0.0-0.1) 07/13/16 04:48 Seg Neutrophils % 48.1 % (40.0-70.0) 07/13/16 04:48 Seg Neutrophils # 3.0 K/mm3 (1.8-7.7) 07/13/16 04:48 VBG pH 7.217 (7.320-7.420) L 07/12/16 17:38 Sodium 138 mmol/L (137-145) 07/13/16 10:03 Potassium 3.6 mmol/L (3.6-5.0) 07/13/16 10:03 Chloride 102.9 mmol/L (98-107) 07/13/16 10:03 Carbon Dioxide 18 mmol/L (22-30) L 07/13/16 10:03 Anion Gap 21 mmol/L 07/13/16 10:03 BUN 8 mg/dL (9-20) L 07/13/16 10:03 Creatinine 0.6 mg/dL (0.8-1.5) L 07/13/16 10:03 Estimated GFR > 60 ml/min 07/13/16 10:03 BUN/Creatinine Ratio 13.33 % 07/13/16 10:03 Glucose 165 mg/dL (75-100) H 07/13/16 10:03 POC Glucose 92 (70-105) 07/13/16 16:43 Calcium 7.9 mg/dL (8.4-10.2) L 07/13/16 10:03 Phosphorus 1.7 mg/dL (2.5-4.5) L 07/12/16 21:42 Magnesium 1.8 mg/dL (1.7-2.3) 07/12/16 21:42 Urine Color Straw (Yellow) 07/12/16 17:26 Urine Turbidity Clear (Clear) 07/12/16 17:26 Urine pH 5.0 (5.0-7.0) 07/12/16 17:26 Ur Specific [place] 1.016 (1.003-1.030) 07/12/16 17:26 Urine Protein <15 mg/dl mg/dL (Negative) 07/12/16 17:26 Urine Glucose (UA) >=500 mg/dL (Negative) 07/12/16 17:26 Urine Ketones 80 mg/dL (Negative) 07/12/16 17:26 Urine Blood Neg (Negative) 07/12/16 17:26 Urine Nitrite Neg (Negative) 07/12/16 17:26 Urine Bilirubin Neg (Negative) 07/12/16 17:26 Urine Urobilinogen < 2.0 mg/dL (<2.0) 07/12/16 17:26 Ur Leukocyte Esterase Neg (Negative) 07/12/16 17:26 Urine WBC (Auto) < 1.0 /HPF (0.0-6.0) 07/12/16 17:26 Urine RBC (Auto) 2.0 /HPF (0.0-6.0) 07/12/16 17:26 Urine Mucus Few /HPF 07/12/16 17:26 Ketones 67.0 mg/dL (0.2-2.8) H 07/12/16 17:38
--- NOTE | 2016-07-13 18:07 | Consultation ---
History of Present Illness Consult date: 07/13/16 Requesting physician: JD ROLLINS Reason for Consult: seizure Chief complaint: seizure History of present illness: 20 YO M Hx Sz disorder since 2013 c/b cerebral hematoma after fall not requiring surgical intervention on LEV 1g BID and compliant who p/w breakthrough seizure on 2/6 PM. Sz was witnessed by mother. He was post ictal in ED and found to have DKA-typical for prior seizures. Event was characterized by LOC and GTC activity. Duration was unclear but post ictal state witnessed for 10-15 mins. There were no clear aggravating, relieving or temporal factors. Severity was such to cause LOC. Past History Past Medical History: diabetes, seizures Past Surgical History: No surgical history Social history: lives with family, smoking Family history: no significant family history Medications and Allergies Allergies Allergy/AdvReac Type Severity Reaction Status Date / Time No Known Allergies Allergy Verified 07/12/16 16:43 Home Medications Medication Instructions Recorded Confirmed Last Taken Type Insulin Aspart [Novolog Flexpen] 60 unit SQ QHS 07/12/16 07/12/16 07/11/16 History Insulin Detemir [Levemir VIAL] 0 unit SQ QHS 07/12/16 07/12/16 07/11/16 History levETIRAcetam [Keppra TAB] 1,000 mg PO BID 07/12/16 07/12/16 07/11/16 History Active Meds: Active Medications Acetaminophen (Tylenol) 650 mg PO Q6H PRN PRN Reason: Pain, Mild (1-3) Al Hydrox/Mg Hydrox/Simethicone (Alum-Mag Hydrox-Simeth 257-299-63nv/5ml) 30 ml PO Q4H PRN PRN Reason: Indigestion Bisacodyl (Dulcolax) 10 mg [place] QDAY PRN PRN Reason: constipation unrelieved by MOM Dextrose (D50w (25gm)) 0 ml IV ONCE PRN PRN Reason: Hypoglycemia Insulin Aspart (Novolog) 0 units SUB-Q AC ALBERTO PRN Reason: Protocol Last Admin: 07/13/16 11:52 Dose: Not Given Insulin Detemir (Levemir) 40 units SUB-Q QHS ALBERTO Levetiracetam (Keppra) 1,000 mg PO BID ALBERTO Last Admin: 07/13/16 10:12 Dose: 1,000 mg Lorazepam (Ativan) 1 mg IV Q4H PRN PRN Reason: Seizures Magnesium Hydroxide (Milk Of Magnesia) 30 ml PO Q4H PRN PRN Reason: Constipation Review of Systems All systems: negative Neurological: head injury, seizures, headaches, balance difficulties Physical Examination - Vital Signs Vital Signs: Vital Signs Temp Pulse Resp BP Pulse Ox 97.7 F 96 H 18 133/79 99 07/12/16 16:38 07/12/16 16:38 07/12/16 16:38 07/12/16 16:38 07/12/16 16:38 - Constitutional General appearance: comfortable - EENT EENT: Present: ATNC, PERRL, mucous membranes moist, hearing intact, vision intact - Respiratory Respiratory: Present: chest non-tender, normal breath sounds, no respiratory distress - Cardiovascular Cardiovascular: Present: regular rate Extremities: Present: no peripheral edema bilatateraly, no clubbing, cyanosis, no inflammation, no ischemia or petechiae - Gastrointestinal Gastrointestinal: Present: normoactive bowel sounds, non-distended - Integumentary Integumentary: Present: normal - Neurologic Cranial nerve examination: PERRL, EOMI, VFF, V1/V2/V3 grossly intact, face symmetric, tongue midline, intact, intact shoulder shrug, intact cough reflex, Intact Vestibulo-ocular r, intact corneal reflex, normal palatal elevation Speech examination: intact Sensorimotor examination: intact Detailed motor examination: full strength in all pooja Motor examination - right side: 5/5: biceps, triceps, wrist flexion, wrist extension, supervisor curing room, hip flexors, knee extensors, dorsiflexion, toe extension (EHL) , plantarflexion Motor examination - left side: 5/5: biceps, triceps, wrist flexion, wrist extension, supervisor curing room, hip flexors, knee extensors, dorsiflexion, toe extension (EHL) , plantarflexion Detailed sensory examination: intact, light touch, temperature Reflex and gait examination: intact Reflexes: 2+: ankle, bicep, knee, tricep - Musculoskeletal Musculoskeletal: Present: no fluid collection, no pain, normal range of motion - Psychiatric Psychiatric: Present: mood/affect appropriate, cooperative Results - Laboratory Findings CBC and BMP: 07/13/16 04:48 07/13/16 10:03 Abnormal Lab Findings: Abnormal Labs 07/12/16 07/12/16 07/12/16 20:21 21:32 21:42 RDW Lymph % (Auto) [place] % (Auto) Potassium Carbon Dioxide BUN Creatinine Glucose POC Glucose 315 H 200 H Calcium Phosphorus 1.7 L 07/12/16 07/12/16 07/13/16 21:42 23:18 00:06 RDW Lymph % (Auto) [place] % (Auto) Potassium 3.4 L Carbon Dioxide 20 L BUN Creatinine Glucose 193 H 181 H POC Glucose 149 H Calcium 8.3 L Phosphorus 07/13/16 07/13/16 07/13/16 00:21 01:02 02:11 RDW Lymph % (Auto) [place] % (Auto) Potassium Carbon Dioxide BUN Creatinine Glucose POC Glucose 206 H 279 H 275 H Calcium Phosphorus 07/13/16 07/13/16 07/13/16 03:14 04:24 04:48 RDW Lymph % (Auto) [place] % (Auto) Potassium 3.2 L Carbon Dioxide BUN 8 L Creatinine 0.7 L Glucose 113 H POC Glucose 166 H 120 H Calcium 8.3 L Phosphorus 07/13/16 07/13/16 07/13/16 04:48 05:15 06:15 RDW 12.5 L Lymph % (Auto) 38.3 H [place] % (Auto) 11.5 H Potassium Carbon Dioxide BUN Creatinine Glucose POC Glucose 108 H 124 H Calcium Phosphorus 07/13/16 07/13/16 07/13/16 06:55 07:07 07:20 RDW Lymph % (Auto) [place] % (Auto) Potassium 3.2 L Carbon Dioxide BUN 8 L Creatinine 0.7 L Glucose 158 H POC Glucose 151 H 151 H Calcium 8.0 L Phosphorus 07/13/16 07/13/16 07/13/16 08:02 09:10 09:58 RDW Lymph % (Auto) [place] % (Auto) Potassium Carbon Dioxide BUN Creatinine Glucose POC Glucose 120 H 132 H 170 H Calcium Phosphorus 07/13/16 07/13/16 10:03 10:57 RDW Lymph % (Auto) [place] % (Auto) Potassium Carbon Dioxide 18 L BUN 8 L Creatinine 0.6 L Glucose 165 H POC Glucose 160 H Calcium 7.9 L Phosphorus - Diagnostic Findings Additional findings: MRA Head: 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 Neuro exam nonfocal. MRA Head w/ intracranial athero but no other clear acute findings. Neurologically pt back to baseline w/o seizure recurrence. Recs 1. Telemetry bed w/ Q4 hour neuro checks 2. Labs: Serum/Urine Tox, UA/UCx, Electrolytes especially Na, Ca, Mg, and Glucose, TSH, 3. AED therapy: Continue Keppra 1000mg BID-pt declines increasing dose and would like to f/u w/ outpt neurologist. 4. Avoid meds that can lower sz threshold e.g. Tramadol, fluroquinolones, carbapenems 5. Pt advised of [place] driving regulations: report date of presumed Seizure/ unexplained loss of consciousness/awareness spell to DMV, refrain from operating a motor vehicle for 6 months after this date, and avoid unsupervised activity particularly around water or heights 6. No indication for CSF analysis at this time 7. We can revisit as needed.
[2016-07-13 19:02] LABS: Blood Urea Nitrogen 6 mg/dL (9-20); Calcium 8.4 mg/dL (8.4-10.2); Carbon Dioxide 25 mmol/L (22-30); Chloride 101.7 mmol/L (98-107); Glucose 133 mg/dL (75-100); Potassium 3.7 mmol/L (3.6-5.0); Sodium 140 mmol/L (137-145)
[2016-07-13 19:12] LABS: Anion Gap 17 mmol/L
[2016-07-13 22:00] LABS: Anion Gap 18 mmol/L; BUN/Creatinine Ratio 8.57; Blood Urea Nitrogen 6 mg/dL (9-20); Calcium 8.3 mg/dL (8.4-10.2); Carbon Dioxide 25 mmol/L (22-30); Chloride 99.7 mmol/L (98-107); Glucose 207 mg/dL (75-100); Potassium 3.4 mmol/L (3.6-5.0); Sodium 139 mmol/L (137-145)
--- NOTE | 2016-07-14 08:37 | Discharge Summary ---
Providers - Providers Date of Admission: 07/12/16 18:49 Date of discharge: 07/14/16 Attending physician: JD ROLLINS MD 07/12/16 19:21 Consult to Physician [CONS] Routine Consulting Provider: MERCEDES CEDILLO Reason For Exam: SEIZURE Place consult to:: Notified:: yes If yes, spoke with:: mar Primary care physician: DIAGNOSTIC TECH Hospitalization Reason for admission: seizure/dka Condition: Good Hospital course: Patient is a 20 year old with hx of brain hematoma 2014 following a seizure episode, epilepsy, DM type 1 diagnosed at age 10, and recurrent admissions in the hospital for both DKA and Epilepsy about 30-40 in the last year. He presents to the ER today accompanied by the mother with the report of Seizure x 1 today witnessed by the mother, tonic clonic and in the ER noted to be in DKA with a blood glucose of >550. Patient had a 10-15 mins Post ictal state that has resolved. He denies any chest pain, nausea, vomiting, diarrhea, fever. The mother reports that in the past attempts to change medications has resulted in prolonged hospitalization due to worsening Blood glucose or repeat seizure. She was seen by neurology recommendations increase the [facility] but the family and the patient declined. They also declined any other blood sugar medication. I recommended following up with neurology outpatient also given information on physicians. We also discussed with the patient [place] driving regulations: report date of presumed Seizure/unexplained loss of consciousness/awareness spell to [facility], refrain from operating a motor vehicle for 6 months after this date, and avoid unsupervised activity particularly around water or heights. Patient verbalized understanding. Discharge diagnosis * DKA * Generalized Tonic clonic Seizure * Metabolic acidosis * IDDM Disposition: DISCHARGED TO HOME OR SELFCARE Time spent for discharge: 35 mins - Discharge Diagnoses (1) Diabetes 1.5, managed as type 1 Status: Chronic (2) Metabolic acidosis Status: Resolved (3) DKA (diabetic ketoacidoses) Status: Resolved Qualifiers: Diabetes mellitus type: D Diabetes mellitus complication detail: D (4) Seizure Status: Chronic Core Measure Documentation - Palliative Care Palliative Care/ Comfort Measures: Not Applicable - Core Measures Any of the following diagnoses?: none - VTE Discharge Requirements Deep Vein Thrombosis/Pulmonary Embolism Present on Admission: No Exam - Physical Exam Narrative exam: VITAL SIGNS: Reviewed. GENERAL: The patient appeared well nourished and normally developed. Vital signs as documented. HEAD: No signs of head trauma. EYES: Pupils are equal. Extraocular motions intact. EARS: Hearing grossly intact. MOUTH: Oropharynx is normal. NECK: No adenopathy, no JVD. CHEST: Chest with clear breath sounds bilaterally. No wheezes, rales, or rhonchi. CARDIAC: Regular rate and rhythm. S1 and S2, without murmurs, gallops, or rubs. VASCULAR: No Edema. Peripheral pulses normal and equal in all extremities. ABDOMEN: Soft, without detectable tenderness. No sign of distention. No rebound or guarding, and no masses palpated. Bowel Sounds normal. MUSCULOSKELETAL: Good range of motion of all major joints. Extremities without clubbing, cyanosis or edema. NEUROLOGIC EXAM: Alert and oriented x 3. No focal sensory or strength deficits. Speech normal. Follows commands. PSYCHIATRIC: Mood normal. SKIN: No rash or lesions. - Constitutional Vitals: Temp Pulse Resp BP Pulse Ox 98.6 F 80 18 107/57 97 07/14/16 00:00 07/14/16 00:00 07/14/16 00:00 07/14/16 00:00 07/14/16 00:00 Plan Activity: advance as tolerated, no driving until cleared by PCP (for 6 months per [place] rules) Diet: diabetic Special Instructions: record blood sugar diary Additional Instructions: Follow with Personal neurologist or Dr Prado Follow up with: PRIMARY CARE, [Primary Care Provider] - 3-5 Days Prescriptions: Insulin Aspart [NovoLOG Flexpen] 60 unit SQ QHS 30 Days levETIRAcetam [Keppra TAB] 1,000 mg PO BID #60 tablet
[2016-07-14] MEDS: NOVOLOG SUB-Q SCH ×2 (08:44→12:30)
[2016-07-14] MEDS: KEPPRA PO SCH (10:43)
[2016-07-14 14:18] VITALS: BP 133/89
[2016-07-14] MEDS ORDERED: FLUARIX QUAD 2016-2017(36 MOS+) IM ONE (15:00)
== END 2016-07-14 14:17 | disposition home or self-care (01) | DRG 639 ==
LOC: ED 16:09 → CC1 18:49 → 3A 07-13 12:21
PROVIDERS: ADMIT Internal Medicine; ATTEND Internal Medicine
DX: E10.10 Type 1 diabetes mellitus with ketoacidosis without coma (principal); G40.409 Other generalized epilepsy and epileptic syndromes, not intractable, without status epilepticus; Z87.820 Personal history of traumatic brain injury; F41.9 Anxiety disorder, unspecified; Z91.19 Patient's noncompliance with other medical treatment and regimen
CPT/HCPCS: 36415; 70450; 70544; 71010; 80048; 81001; 82010; 82805; 82962; 83735; 84100; 85025; 90686; 93005; 93010; 96365; 96375; J1815; J1818; J1953; J7030

== ENCOUNTER 2016-07-26 15:27 | Inpatient (IN) | payer SELFPAY ==
[2016-07-26] MEDS ORDERED: KEPPRA 1,000 MG/NS 0.75% 100ML 1,000 MG/100 ML BAG IV ONE (16:56)
[2016-07-26 17:00] LABS: Anion Gap 30 mmol/L; B-Hydroxybutyrate 45.2 mg/dL (0.2-2.8); BUN/Creatinine Ratio 8.18; Blood Urea Nitrogen 9 mg/dL (9-20); Calcium 9.3 mg/dL (8.4-10.2); Carbon Dioxide 18 mmol/L (22-30); Chloride 96.1 mmol/L (98-107); Glucose 256 mg/dL (75-100); Potassium 3.5 mmol/L (3.6-5.0); Sodium 141 mmol/L (137-145)
[2016-07-26] MEDS ORDERED: TORADOL IV ONE (17:14)
[2016-07-26 17:28] LABS: Basophils % (Auto) 0.7 % (0.0-1.8); Eosinophils % (Auto) 0.4 % (0.0-4.3); Hematocrit 49.5 % (35.5-45.6); Hemoglobin 16.7 gm/dl (11.8-15.2); Mean Corpuscular HGB Conc 34 % (32-34); Mean Corpuscular Hemoglobin 31 pg (28-32); Mean Corpuscular Volume 90 fl (84-94); Platelet Count 220 K/mm3 (140-440); Red Blood Count 5.47 M/mm3 (3.65-5.03); Red Cell Distribution Width 12.6 % (13.2-15.2); White Blood Count 5.8 K/mm3 (4.5-11.0)
[2016-07-26] MEDS ORDERED: NACL 0.9% 1000 ML 1,000 ML IV ONE ×2 (17:56→20:34)
--- NOTE | 2016-07-26 18:00 | Emergency Department Report ---
ED Seizure HPI - General Chief Complaint: Seizure Stated Complaint: CONVULSIONS Time Seen by Provider: 07/26/16 16:54 Source: patient, EMS Mode of arrival: Stretcher Limitations: No Limitations, Altered Mental Status - History of Present Illness Initial Comments: 21-year-old male with a past medical history history of seizures and insulin- dependent diabetes presents hospital complaints of seizure. Patient was on an extended stay. His mom states that patient had a seizure lasting 2-3 minutes she load him on the floor. Patient is not completely compliant with his insulin. Mom and patient claims that he is compliant with his Keppra 1000 mg twice a day. Patient still appears to be post ictal but complains of bilateral shoulder pain and denies headache. Patient was recently admitted here July 12 until July 14. Neurology recommended increasing Keppra but family declined the also declined adjustment in his glucose medications. Patient has not follow-up with the neurologist - Related Data Home Medications Medication Instructions Recorded Confirmed Last Taken Insulin Detemir [Levemir VIAL] 0 unit SQ QHS 07/12/16 07/26/16 07/22/16 Previous Rx's Medication Instructions Recorded Last Taken Type Insulin Aspart [NovoLOG Flexpen] 60 unit SQ QHS 30 Days 07/14/16 07/22/16 Rx levETIRAcetam [Keppra TAB] 1,000 mg PO BID #60 tablet 07/14/16 07/22/16 Rx Allergies Allergy/AdvReac Type Severity Reaction Status Date / Time No Known Allergies Allergy Verified 07/12/16 16:43 ED Review of Systems ROS: Stated complaint: CONVULSIONS Other details as noted in HPI Comment: Unobtainable due to pts medical conditions (limited because patient is post ictal please refer to HPI) ED Past Medical Hx - Past Medical History Previous Medical History?: Yes Hx Congestive Heart Failure: No Hx Diabetes: Yes (IDDM) Hx Seizures: Yes Hx Asthma: No Hx COPD: No Additional medical history: Brain hematoma 2014 following a seizure episode, - Surgical History Past Surgical History?: No - Social History Smoking Status: Never Smoker Substance Use Type: None - Medications Home Medications: Home Medications Medication Instructions Recorded Confirmed Last Taken Type Insulin Detemir [Levemir VIAL] 0 unit SQ QHS 07/12/16 07/26/16 07/22/16 History Insulin Aspart [NovoLOG Flexpen] 60 unit SQ QHS 30 Days 07/14/16 07/26/16 Rx levETIRAcetam [Keppra TAB] 1,000 mg PO BID #60 tablet 07/14/16 07/26/16 Rx ED Physical Exam - General Limitations: No Limitations, Altered Mental Status - Other Other exam information: General: Limited due to mental status Head exam: Atraumatic, normocephalic Eyes exam: Normal appearance, pupils equal reactive to light ENT: Moist mucous membrane, normal oropharynx, no tongue laceration Neck exam: Normal inspection, full range of motion, no meningismus nontender Respiratory exam: Clear to auscultation bilateral, no wheezes, rales, crackles Cardiovascular: Normal rate and rhythm, normal heart sounds Abdomen: Soft, nondistended, and nontender, with normal bowel sounds, no rebound, or guarding Extremity: Full range of motion normal inspection no deformity Back: Normal Inspection, full range of motion, no tenderness Neurologic: Lethargic postictal, equal hand cracking still operator and foot dorsiflexion, sensation grossly intact Skin: Warm, dry, intact ED Course Vital Signs 07/26/16 07/26/16 07/26/16 15:55 16:02 16:04 Temperature 98.6 F 98.4 F Pulse Rate 105 H 103 H Respiratory 16 16 Rate Blood Pressure 110/80 Blood Pressure 110/80 [Left] O2 Sat by Pulse 99 99 100 Oximetry 07/26/16 07/26/16 07/26/16 16:10 16:20 16:30 Temperature Pulse Rate Respiratory Rate Blood Pressure 115/77 115/77 115/77 Blood Pressure [Left] O2 Sat by Pulse 99 99 99 Oximetry 07/26/16 07/26/16 07/26/16 16:40 16:50 17:00 Temperature Pulse Rate Respiratory Rate Blood Pressure 115/77 115/77 110/78 Blood Pressure [Left] O2 Sat by Pulse 98 99 Oximetry 07/26/16 07/26/16 07/26/16 17:10 17:20 17:30 Temperature Pulse Rate Respiratory Rate Blood Pressure 110/78 110/78 110/78 Blood Pressure [Left] O2 Sat by Pulse 98 99 99 Oximetry 07/26/16 07/26/16 07/26/16 17:40 17:50 18:00 Temperature Pulse Rate Respiratory Rate Blood Pressure 110/78 110/78 107/63 Blood Pressure [Left] O2 Sat by Pulse 99 98 98 Oximetry 07/26/16 07/26/16 07/26/16 18:10 18:20 18:30 Temperature Pulse Rate Respiratory Rate Blood Pressure 107/63 107/63 107/63 Blood Pressure [Left] O2 Sat by Pulse 97 98 100 Oximetry 07/26/16 07/26/16 07/26/16 18:40 18:50 19:00 Temperature Pulse Rate Respiratory Rate Blood Pressure 107/63 107/63 111/65 Blood Pressure [Left] O2 Sat by Pulse 97 97 Oximetry 07/26/16 19:29 Temperature 98.5 F Pulse Rate 65 Respiratory 20 Rate Blood Pressure Blood Pressure 111/65 [Left] O2 Sat by Pulse 99 Oximetry - Reevaluation(s) Reevaluation #1: 07/26/16 18:00 Keppra 1 g ordered, seizure precautions Reevaluation #2: 07/26/16 21:07 Patient remains post ictal ED Medical Decision Making - Lab Data Result diagrams: 07/26/16 16:27 07/26/16 16:27 Lab Results 07/26/16 07/26/16 07/26/16 Range/Units 16:02 16:27 16:27 WBC 5.8 (4.5-11.0) K/mm3 RBC 5.47 H (3.65-5.03) M/mm3 Hgb 16.7 H (11.8-15.2) gm/dl Hct 49.5 H (35.5-45.6) % MCV 90 (84-94) fl MCH 31 (28-32) pg MCHC 34 (32-34) % RDW 12.6 L (13.2-15.2) % Plt Count 220 (140-440) K/mm3 Lymph % (Auto) 24.2 (13.4-35.0) % Hughes % (Auto) 6.7 (0.0-7.3) % Eos % (Auto) 0.4 (0.0-4.3) % Baso % (Auto) 0.7 (0.0-1.8) % Lymph # 1.4 (1.2-5.4) K/mm3 Hughes # 0.4 (0.0-0.8) K/mm3 Eos # 0.0 (0.0-0.4) K/mm3 Baso # 0.0 (0.0-0.1) K/mm3 Seg Neutrophils % 68.0 (40.0-70.0) % Seg Neutrophils # 4.0 (1.8-7.7) K/mm3 VBG pH (7.320-7.420) Sodium 141 (137-145) mmol/L Potassium 3.5 L (3.6-5.0) mmol/L Chloride 96.1 L (98-107) mmol/L Carbon Dioxide 18 L (22-30) mmol/L Anion Gap 30 mmol/L BUN 9 (9-20) mg/dL Creatinine 1.1 (0.8-1.5) mg/dL Estimated GFR > 60 ml/min BUN/Creatinine Ratio 8.18 % Glucose 256 H (75-100) mg/dL POC Glucose 288 H (70-105) Lactic Acid (0.7-2.0) mmol/L Calcium 9.3 (8.4-10.2) mg/dL Magnesium (1.7-2.3) mg/dL Urine Color (Yellow) Urine Turbidity (Clear) Urine pH (5.0-7.0) Ur Specific Athena (1.003-1.030) Urine Protein (Negative) mg/dL Urine Glucose (UA) (Negative) mg/dL Urine Ketones (Negative) mg/dL Urine Blood (Negative) Urine Nitrite (Negative) Urine Bilirubin (Negative) Urine Urobilinogen (<2.0) mg/dL Ur Leukocyte Esterase (Negative) Urine WBC (Auto) (0.0-6.0) /HPF Urine RBC (Auto) (0.0-6.0) /HPF U Epithel Cells (Auto) (0-13.0) /HPF Urine Mucus /HPF Ketones 45.2 H (0.2-2.8) mg/dL 07/26/16 07/26/16 07/26/16 Range/Units 16:27 16:27 18:35 WBC (4.5-11.0) K/mm3 RBC (3.65-5.03) M/mm3 Hgb (11.8-15.2) gm/dl Hct (35.5-45.6) % MCV (84-94) fl MCH (28-32) pg MCHC (32-34) % RDW (13.2-15.2) % Plt Count (140-440) K/mm3 Lymph % (Auto) (13.4-35.0) % Hughes % (Auto) (0.0-7.3) % Eos % (Auto) (0.0-4.3) % Baso % (Auto) (0.0-1.8) % Lymph # (1.2-5.4) K/mm3 Hughes # (0.0-0.8) K/mm3 Eos # (0.0-0.4) K/mm3 Baso # (0.0-0.1) K/mm3 Seg Neutrophils % (40.0-70.0) % Seg Neutrophils # (1.8-7.7) K/mm3 VBG pH 7.259 L (7.320-7.420) Sodium (137-145) mmol/L Potassium (3.6-5.0) mmol/L Chloride (98-107) mmol/L Carbon Dioxide (22-30) mmol/L Anion Gap mmol/L BUN (9-20) mg/dL Creatinine (0.8-1.5) mg/dL Estimated GFR ml/min BUN/Creatinine Ratio % Glucose (75-100) mg/dL POC Glucose 98 (70-105) Lactic Acid (0.7-2.0) mmol/L Calcium (8.4-10.2) mg/dL Magnesium 2.2 (1.7-2.3) mg/dL Urine Color (Yellow) Urine Turbidity (Clear) Urine pH (5.0-7.0) Ur Specific Athena (1.003-1.030) Urine Protein (Negative) mg/dL Urine Glucose (UA) (Negative) mg/dL Urine Ketones (Negative) mg/dL Urine Blood (Negative) Urine Nitrite (Negative) Urine Bilirubin (Negative) Urine Urobilinogen (<2.0) mg/dL Ur Leukocyte Esterase (Negative) Urine WBC (Auto) (0.0-6.0) /HPF Urine RBC (Auto) (0.0-6.0) /HPF U Epithel Cells (Auto) (0-13.0) /HPF Urine Mucus /HPF Ketones (0.2-2.8) mg/dL 07/26/16 07/26/16 Range/Units 18:43 19:44 WBC (4.5-11.0) K/mm3 RBC (3.65-5.03) M/mm3 Hgb (11.8-15.2) gm/dl Hct (35.5-45.6) % MCV (84-94) fl MCH (28-32) pg MCHC (32-34) % RDW (13.2-15.2) % Plt Count (140-440) K/mm3 Lymph % (Auto) (13.4-35.0) % Hughes % (Auto) (0.0-7.3) % Eos % (Auto) (0.0-4.3) % Baso % (Auto) (0.0-1.8) % Lymph # (1.2-5.4) K/mm3 Hughes # (0.0-0.8) K/mm3 Eos # (0.0-0.4) K/mm3 Baso # (0.0-0.1) K/mm3 Seg Neutrophils % (40.0-70.0) % Seg Neutrophils # (1.8-7.7) K/mm3 VBG pH (7.320-7.420) Sodium (137-145) mmol/L Potassium (3.6-5.0) mmol/L Chloride (98-107) mmol/L Carbon Dioxide (22-30) mmol/L Anion Gap mmol/L BUN (9-20) mg/dL Creatinine (0.8-1.5) mg/dL Estimated GFR ml/min BUN/Creatinine Ratio % Glucose (75-100) mg/dL POC Glucose (70-105) Lactic Acid 1.9 (0.7-2.0) mmol/L Calcium (8.4-10.2) mg/dL Magnesium (1.7-2.3) mg/dL Urine Color Yellow (Yellow) Urine Turbidity Clear (Clear) Urine pH 5.0 (5.0-7.0) Ur Specific Athena 1.028 (1.003-1.030) Urine Protein <15 mg/dl (Negative) mg/dL Urine Glucose (UA) >=500 (Negative) mg/dL Urine Ketones 80 (Negative) mg/dL Urine Blood Neg (Negative) Urine Nitrite Neg (Negative) Urine Bilirubin Neg (Negative) Urine Urobilinogen < 2.0 (<2.0) mg/dL Ur Leukocyte Esterase Neg (Negative) Urine WBC (Auto) 1.0 (0.0-6.0) /HPF Urine RBC (Auto) 2.0 (0.0-6.0) /HPF U Epithel Cells (Auto) < 1.0 (0-13.0) /HPF Urine Mucus Few /HPF Ketones (0.2-2.8) mg/dL - Medical Decision Making Patient remains post ictal and has an anion gap acidosis with elevated ketones although blood glucose is in normal range. We'll admit to the hospital for further treatment and observation - Differential Diagnosis DKA, seizure, medication noncompliance, encephalopathy, electrolyte abnorma Critical Care Time: No Critical care attestation.: If time is entered above; I have spent that time in minutes in the direct care of this critically ill patient, excluding procedure time. ED Disposition Clinical Impression: Seizure, Ketosis, High anion gap metabolic acidosis, DM type 1 (diabetes mellitus, type 1) Disposition: OP ADMITTED IP TO THIS HOSP Is pt being admited?: Yes Condition: Stable Time of Disposition: 21:07 (dr Sesay/hosp)
[2016-07-26 20:02] LABS: Bilirubin,Urine NEG (Negative); Blood,Urine NEG (Negative); Ketones,Urine 80 mg/dL (Negative); Leukocyte Esterase,Urine NEG (Negative); Mucus,Urine FEW /HPF; Nitrite,Urine NEG (Negative); Protein,Urine <15 mg/dL mg/dL (Negative); Urobilinogen,Urine < 2.0 mg/dL (<2.0)
--- NOTE | 2016-07-26 20:29 | Admit Criteria Form ---
Admission Criteria Documentation: SEIZURE Clinical Indications for Admission to Inpatient Care (Place 'X' for any and all applicable criteria): Admission is indicated for seizure and ANY ONE of the following(1)(2)(3)(4)(5): [X ]I. Inpatient admission required rather than observation care (Also use Seizure: Observation Care Criteria as appropriate) because of ANY ONE of the following: [ ]a) Altered mental status that is severe or persistent [ ]b) New focal neurologic deficit that is severe or persistent [X ]c) Metabolic disorder (eg, hypoglycemia, hyponatremia) that is severe or persistent [ ]d) Recurrent seizure [ ]e) Outpatient antiseizure regimen cannot be established (eg , patient cannot tolerate medication, initiation requires inpatient care) [ ]f) Need for ongoing intravenous infusion of antiseizure medication [ ]g) Cardiac arrhythmias of immediate concern [ ]h) Cerebral bleeding, hydrocephalus, or vasospasm monitoring (14) [ ]i) Increased intracranial pressure or cerebral edema monitoring (15) [X ]j) Other treatment or monitoring requiring inpatient admission [ ]II. Status epilepticus [A] or repetitive seizures not controlled with emergent treatment (6)(8) [ ]III. Brain disorder (eg, tumor, edema, and hydrocephalus) that requiring monitoring or intervention available only at inpatient level of care. [ ]IV. Brain insult (eg, severe trauma, stroke, drug toxicity, or withdrawal) that requires monitoring or intervention available only at inpatient level of care (10)(11) Extended stay beyond goal length of stay may be needed for (22) [ ]a) Complications of status epilepticus [ ]b) Refractory status epilepticus [ ]c) Etiology-specific therapy for conditions such as [employer] infection, head injury,eclampsia, severe metabolic abnormalities, and brain tumor [ ]d) Residual neurologic damage, [ ]e) Initiation of significant change to anticonvulsant treatment [ ]f) Older patients (65 years or older) [ ]g) Patient requiring intubation (eg, to protect airway) The original [email or web address] content created by [email or web address] [employer] has been revised. The portions of the content which have been revised are identified through the use of italic text or in bold, and [facility] [employer] has neither reviewed nor approved the modified material. All other unmodified content is copyright [facility] [employer]. Please see references footnoted in the original [facility] edition 2016 Admission Criteria Met: Yes
--- NOTE | 2016-07-26 23:28 | Event Note ---
Date: 07/26/16 See H/p in reports DKA-mild Seizure disorder
[2016-07-26] MEDS ORDERED: NON-FORMULARY (Levetiracetam [Keppra Tab] 1,000 MG) PO SCH (23:30)
[2016-07-26] MEDS ORDERED: PERCOCET 5/325 PO PRN (23:31)
[2016-07-26] MEDS ORDERED: ZOFRAN IV PRN ×2 (23:31→23:40)
[2016-07-26] MEDS ORDERED: MILK OF MAGNESIA PO PRN (23:31)
[2016-07-26] MEDS ORDERED: TYLENOL PO PRN (23:31)
[2016-07-26] MEDS ORDERED: DULCOLAX PR PRN (23:31)
[2016-07-26] MEDS ORDERED: NOVOLOG SUB-Q ONE (23:36)
[2016-07-26] MEDS ORDERED: NACL 0.9% 1000 ML 1,000 ML IV SCH (23:45)
[2016-07-27 05:12] VITALS: BP 112/82
[2016-07-27] MEDS ORDERED: KEPPRA PO SCH (10:00)
[2016-07-27] MEDS ORDERED: LOVENOX SUB-Q SCH (10:00)
--- NOTE | 2016-07-27 18:05 | History and Physical Report ---
CHIEF COMPLAINT: Altered mental status. HISTORY OF PRESENT ILLNESS: A 21-year-old male with history of juvenile diabetes since age 10, comes in for seizure. The patient had a seizure lasting for 2-3 minutes and the mom put him on the floor. The patient is apparently compliant with insulin, also compliant with his Keppra. The patient was postictal in the ER and complains of bilateral shoulder pain and denies headache, also feels weak. The patient has been taking his insulin on a regular basis. Altered sensorium improved in the ER. Able to talk normally. The patient is on Levemir 60 units subQ at bedtime and also sliding scale NovoLog insulin before each meal and depending on the sugars. No fever. No chills. No chest pain. No nausea. No vomiting. PAST MEDICAL HISTORY: Significant for juvenile diabetes and seizure disorder. CURRENT MEDICATIONS: Levemir 60 units subQ at bedtime and NovoLog sliding scale before each meal and Keppra 1000 mg b.i.d. PAST SURGICAL HISTORY: None. SOCIAL HISTORY: Does not smoke. He lives with his mother. REVIEW OF SYSTEMS: GENERAL: Altered sensorium, but resolved completely during my exam. HEENT: No sore throat. No postnasal drip. CARDIOVASCULAR: No chest pain, no palpitations. RESPIRATORY SYSTEM: No shortness of breath. GASTROINTESTINAL: Some nausea present, but no vomiting. No abdominal pain. GENITOURINARY SYSTEM: No dysuria, no flank pain. MUSCULOSKELETAL SYSTEM: No joint pains. No muscle pains. CENTRAL NERVOUS SYSTEM: No syncope. Seizures present. Seizure just prior to admission and postictal for a couple of hours and now normal. SKIN: No rashes. LYMPHATIC SYSTEM AND HEMATOLOGIC SYSTEM: No bruising. No lymphedema. A 14-point review of systems was done essentially negative. PHYSICAL EXAMINATION: GENERAL: Young male, cooperative during examination. VITAL SIGNS: Temperature 98.6, blood pressure is 110/80, pulse is 105, respiratory rate is 16. HEENT: Unremarkable. Pupils equal and reactive. Tongue is slightly dry. NECK: Supple. No lymphadenopathy, no thyromegaly. LUNGS: Clear to auscultation and percussion. Good air entry. CARDIOVASCULAR: S1, S2 heard. No gallop, no murmur, no rub. Apical impulse in left fifth intercostal space and midclavicular line. ABDOMEN: Soft and benign. No hepatosplenomegaly. No guarding. No rigidity. Hernial orifices are normal. EXTREMITIES: Good pedal pulses. No pedal edema. CENTRAL NERVOUS SYSTEM: Alert and oriented x 4, nonfocal exam. LABORATORY DATA: Significant for white count of 5800, H and H is 16.7 and 49.5, platelet count is 220,000. Sodium is 141, potassium is 4.5, bicarbonate is 18, chloride is 96, BUN and creatinine is 9 and 1.1, glucose is 256. A1c is 13.4. Initial glucose was 256. ABG: pH of 7.259. Urine, more than 500 glucose, ketones 45.2. ASSESSMENT AND PLAN: 1. Altered mental status secondary to seizures and high glucose levels and ketones, resolved in the ER with IV fluids and seizure medications. Diabetic ketoacidosis, mild, the patient was admitted to regular floor because of the sugars being in the 256 to 304 range. We will cover him with high dose sliding scale coverage and continue his Levemir 60 units subcutaneous daily. Also, the patient's hemoglobin A1c is high and the patient was counseled about the A1c. The patient is to follow with his PCP regarding adjustment of the dosage. The patient needs to be on NovoLog at least 6 units before each meal, irrespective of the sugar levels, below 80. 2. Seizure disorder. Continue Keppra 1000 mg twice a day. 3. Deep venous thrombosis prophylaxis, Lovenox 40 mg subcutaneous daily. JOB# [id number] JACI/ROGERIO
--- NOTE | 2016-07-27 21:52 | Discharge Summary ---
ADMISSION DIAGNOSES: The patient admitted for diabetic ketoacidosis, seizure disorder, and altered mental state. HOSPITAL COURSE: The patient was admitted to the regular floor with high dose sliding scale coverage, IV fluids. The patient's altered sensorium improved with IV fluids and insulin. The patient did well with insulin, IV fluids, and Keppra. The patient continued to do well for the next 4-5 hours. As the patient was feeling better, the patient did not want to stay in the hospital and with help of his mom signed out against medical advice. The patient knew the risks of against medical advice. The patient was counseled about being compliant with insulin and follow up with his primary care physicians. ____ DISCHARGE DIAGNOSES: 1. Diabetic ketoacidosis. 2. Seizure disorder. 3. Altered mental status. 4. Deep venous thrombosis prophylaxis. 5. Encephalopathy, which was metabolic, resolved in the hospital in the first few hours. Time spent on discharge 20 minutes. Follow up with PCP on a regular basis. Compliance with medications advised. The patient signed out AMA. JOB# [id number] JACI/ROGERIO
[2016-07-27] MEDS ORDERED: LEVEMIR SUB-Q SCH (22:00)
== END 2016-07-27 04:23 | disposition left against medical advice (07) | DRG 637 ==
LOC: ED 15:27 → 3A 23:31
PROVIDERS: ADMIT Internal Medicine; ATTEND Internal Medicine
DX: E10.10 Type 1 diabetes mellitus with ketoacidosis without coma (principal); G93.41 Metabolic encephalopathy; E87.2 Acidosis; G40.909 Epilepsy, unspecified, not intractable, without status epilepticus; Z71.89 Other specified counseling; Z53.21 Procedure and treatment not carried out due to patient leaving prior to being seen by health care provider
CPT/HCPCS: 36415; 80048; 81001; 82010; 82140; 82805; 82962; 83036; 83735; 85025; J1650; J1815; J1818; J1885; J1953; J2405; J7030

== ENCOUNTER 2016-08-22 15:26 | Inpatient (IN) | payer SELFPAY ==
[2016-08-22 16:21] LABS: Basophils % (Auto) 0.8 % (0.0-1.8); Eosinophils % (Auto) 0.9 % (0.0-4.3); Hematocrit 44.3 % (35.5-45.6); Mean Corpuscular HGB Conc 32 % (32-34); Mean Corpuscular Hemoglobin 31 pg (28-32); Mean Corpuscular Volume 98 fl (84-94); Platelet Count 212 K/mm3 (140-440); Red Blood Count 4.53 M/mm3 (3.65-5.03); Red Cell Distribution Width 14.5 % (13.2-15.2); White Blood Count 3.6 K/mm3 (4.5-11.0)
[2016-08-22 16:22] LABS: Anion Gap 33 mmol/L; Blood Urea Nitrogen 22 mg/dL (9-20); Calcium 8.9 mg/dL (8.4-10.2); Carbon Dioxide 19 mmol/L (22-30); Chloride 81.3 mmol/L (98-107); Potassium 4.8 mmol/L (3.6-5.0); Sodium 128 mmol/L (137-145)
[2016-08-22 16:34] LABS: Glucose 940 mg/dL (75-100)
[2016-08-22] MEDS ORDERED: D50W (25GM) IV PRN (16:36)
[2016-08-22] MEDS ORDERED: NACL 0.9% 1000 ML 1,000 ML ONE (16:42)
[2016-08-22] MEDS ORDERED: NACL 0.9% 1000 ML 1,000 ML IV ONE (16:45)
[2016-08-22] MEDS ORDERED: KEPPRA 1,000 MG/NS 0.75% 100ML 1,000 MG/100 ML BAG IV ONE (16:47)
--- NOTE | 2016-08-22 16:48 | Emergency Department Report ---
HPI - General Chief Complaint: Seizure Time Seen by Provider: 08/22/16 16:35 - HPI HPI: This is a 21-year-old male who presents the emergency department with complaint of uncontrolled blood sugar and a seizure today. The patient does not have much information about the seizure but says "that's what they told me." He arrived by EMS from home. The patient has a history of insulin diabetes and has a history of multiple visits for hyperglycemia. Patient denies noncompliance. He says he takes 60 units of Levemir each evening and is on a sliding scale of NovoLog at meals. He admits that he sometimes does not truly understand the sliding scale. He is on Keppra for his seizures but says he takes compliantly as well. He does not have a primary care doctor. Currently he denies any significant symptoms. No recent travel or sick contacts at home. ED Past Medical Hx - Past Medical History Previous Medical History?: Yes Hx Congestive Heart Failure: No Hx Diabetes: Yes (IDDM) Hx Seizures: Yes Hx Asthma: No Hx COPD: No Additional medical history: Brain hematoma 2014 following a seizure episode, - Surgical History Past Surgical History?: No - Social History Smoking Status: Never Smoker Substance Use Type: None - Medications Home Medications: Home Medications Medication Instructions Recorded Confirmed Last Taken Type Insulin Detemir [Levemir VIAL] 0 unit SQ QHS 07/12/16 08/22/16 07/22/16 History Insulin Aspart [NovoLOG Flexpen] 60 unit SQ QHS 30 Days 07/14/16 08/22/16 Rx levETIRAcetam [Keppra TAB] 1,000 mg PO BID #60 tablet 07/14/16 08/22/16 Rx ED Review of Systems ROS: Stated complaint: SEIZURE Other details as noted in HPI Comment: All other systems reviewed and negative Constitutional: denies: chills, fever Eyes: denies: eye pain, eye discharge, vision change ENT: denies: ear pain, throat pain Respiratory: denies: cough, shortness of breath, wheezing Cardiovascular: denies: chest pain, palpitations Gastrointestinal: denies: abdominal pain, nausea, diarrhea Genitourinary: denies: urgency, dysuria Musculoskeletal: denies: back pain, joint swelling, arthralgia Skin: denies: rash, lesions Neurological: other (seizure). denies: headache, weakness, paresthesias Physical Exam - Physical Exam Physical Exam: GENERAL: The patient is well-developed well-nourished. HEENT: Normocephalic. Atraumatic. Extraocular motions are intact. Patient has moist mucous membranes. Pupils equal reactive to light bilaterally. NECK: Supple. Trachea is midline. CHEST/LUNGS: Clear to auscultation. There is no respiratory distress noted. HEART/CARDIOVASCULAR: Regular. There is no tachycardia. There is no gallop rub or murmur. ABDOMEN: Abdomen is soft, nontender. Patient has normal bowel sounds. There is no abdominal distention. SKIN: There is no rash. There is no edema. There is no diaphoresis. NEURO: The patient is awake, alert, and oriented. The patient is cooperative. The patient has no focal neurologic deficits. The patient has normal speech. Cranial nerves II-12 grossly intact. MUSCULOSKELETAL: There is no tenderness or deformity. There is no limitation range of motion. There is no evidence of acute injury. ED Medical Decision Making - Lab Data Result diagrams: 08/22/16 15:48 08/22/16 15:48 - Medical Decision Making This is a 21-year-old male presents to the emergency department after a seizure episode with significant hyperglycemia. Patient appears to be in DKA as he has acidosis, a blood sugar of almost 1000 and elevated anion gap. Patient started on insulin drip and given IV fluid resuscitation. He is currently awake and alert. Since patient has a history of seizures and is not making any complaints of headache or neurological deficits, I do not feel that he needs any immediate CT imaging of the head. He was given a loading dose of Keppra via IV. Patient will be admitted to the hospital for further evaluation and treatment has been accepted by the hospitalist, Dr. Guerrier. - Differential Diagnosis DKA, HHNK, noncompliance, epilepsy Critical Care Time: No Critical care attestation.: If time is entered above; I have spent that time in minutes in the direct care of this critically ill patient, excluding procedure time. ED Disposition Clinical Impression: Seizure, High anion gap metabolic acidosis DM type 1 (diabetes mellitus, type 1) Qualifiers: Diabetes mellitus complication status: with ketoacidosis Diabetes mellitus complication detail: without coma Qualified Code(s): E10.10 - Type 1 diabetes mellitus with ketoacidosis without coma Diabetic ketoacidosis Qualifiers: Diabetes mellitus type: type 1 Diabetes mellitus complication detail: without coma Qualified Code(s): E10.10 - Type 1 diabetes mellitus with ketoacidosis without coma Disposition: OP ADMITTED IP TO THIS HOSP Is pt being admited?: Yes Condition: Stable Instructions: Diabetes Mellitus Type 2 in Adults (ED), Diabetic Ketoacidosis ( ED) Referrals: PRIMARY CARE,MD [Primary Care Provider] - 3-5 Days Time of Disposition: 17:12
[2016-08-22] MEDS ORDERED: NovoLIN R 100 UNITS in NACL 0.9% 99 ML IV SCH (17:00)
[2016-08-22 17:24] LABS: Magnesium 1.8 mg/dL (1.7-2.3); Phosphorous 4.8 mg/dL (2.5-4.5)
[2016-08-22 17:25] LABS: Anion Gap 28 mmol/L; Blood Urea Nitrogen 21 mg/dL (9-20); Calcium 9.1 mg/dL (8.4-10.2); Carbon Dioxide 22 mmol/L (22-30); Chloride 83.8 mmol/L (98-107); Potassium 4.6 mmol/L (3.6-5.0); Sodium 129 mmol/L (137-145)
[2016-08-22 17:38] LABS: Bilirubin,Urine NEG (Negative); Blood,Urine NEG (Negative); Ketones,Urine 20 mg/dL (Negative); Leukocyte Esterase,Urine NEG (Negative); Nitrite,Urine NEG (Negative); Protein,Urine <15 mg/dL mg/dL (Negative); Urobilinogen,Urine < 2.0 mg/dL (<2.0); WBC,Urine < 1.0 /HPF (0.0-6.0)
[2016-08-22 17:46] LABS: Glucose 806 mg/dL (75-100)
[2016-08-22] MEDS ORDERED: MILK OF MAGNESIA PO PRN (17:51)
[2016-08-22] MEDS ORDERED: TYLENOL PO PRN (17:51)
[2016-08-22] MEDS ORDERED: ZOFRAN IV PRN (17:51)
[2016-08-22] MEDS ORDERED: DULCOLAX PR PRN (17:51)
[2016-08-22] MEDS ORDERED: MORPHINE IV PRN (17:51)
--- NOTE | 2016-08-22 18:00 | History and Physical Report ---
History of Present Illness Date of examination: 08/22/16 Date of admission: 08/22/2016 Chief complaint: Seizure History of present illness: Patient was found in bed uncomfortable mother thought patient may have had another seizure. Patient was therefore brought to the ED for chief complaint of seizure altered mental status. Patient found to be in DKA. When questioned about patient's use of insulin he states he's been out for quite some time now. But when he was taken his medications it was working. Patient's very poor historian. Patient denied any chest pain shortness of breath no different exertion orthopnea no PND. Patient only complains of generalized weakness with some nausea. Patient has been able to hold food down without any difficulty. His blood sugar was found to be close to 1000 and was admitted for DKA. At present patient is resting bed comfortably no acute distress Being placed. Past History Past Medical History: diabetes. denies: acute IN, arrhythmia, anemia, arthritis , DVT, ESRD, hepatitis, pulmonary embolism, renal failure Past Surgical History: No surgical history Social history: single, full code. denies: smoking, alcohol abuse, prescription drug abuse, IV drug use Family history: diabetes Medications and Allergies Allergies Allergy/AdvReac Type Severity Reaction Status Date / Time No Known Allergies Allergy Verified 07/12/16 16:43 Home Medications Medication Instructions Recorded Confirmed Last Taken Type Insulin Detemir [Levemir VIAL] 0 unit SQ QHS 07/12/16 08/22/16 07/22/16 History Insulin Aspart [NovoLOG Flexpen] 60 unit SQ QHS 30 Days 07/14/16 08/22/16 Rx levETIRAcetam [Keppra TAB] 1,000 mg PO BID #60 tablet 07/14/16 08/22/16 Rx Active Meds: Active Medications Dextrose (D50w (25gm)) 0 ml IV PRN PRN PRN Reason: Hypoglycemia Insulin Human Regular 100 (units/ Sodium Chloride) 100 mls @ 7 mls/hr IV TITR ALBERTO; 7 UNITS/HR PRN Reason: Protocol Last Admin: 08/22/16 17:24 Dose: 7 units/hr, 7 mls/hr Review of Systems Constitutional: fatigue, weakness, no weight loss, no daytime sleepiness, no chronic pain Ears, nose, mouth and throat: no ear pain, no nose pain, no nasal discharge, no sinus pain, no mouth pain, no sore throat, no swelling in mouth, no swelling in throat, no voice changes, no headache, no pain front of neck, no neck fullness/ pressure Cardiovascular: no palpitations, no rapid/irregular heart beat, no dyspnea on exertion, no claudication, no phlebitis, no high blood pressure, no leg edema, no decreased exercise tolerance Respiratory: no cough, no cough with sputum, no hemoptysis, no wheezing, no pleurisy, no pain on inspiration, no respiratory infections, no home oxygen Gastrointestinal: nausea, melena, no abdominal pain, no vomiting, no diarrhea, no constipation, no change in bowel habits, no hematemesis, no BRBPR, no loss of appetite, no early satiety, no jaundice, no dyspepsia/bloating, no other Genitourinary Male: no dysuria, no flank pain, no discharge, no urinary hesitancy, no incontinence, no erectile dysfunction, no genital sores, no decreased libido, no testicular lump, no polyuria Rectal: no bleeding, no discharge Musculoskeletal: no neck pain, no shooting arm pain, no low back pain, no shooting leg pain, no hot joints, no muscle cramps, no myalgias, no frequent falls, no loss of height, no prior amputations Integumentary: no rash, no pruritis, no sores Neurological: no head injury, no paralysis, no parathesias, no seizures, no syncope, no vertigo, no migraines, no convulsions, no motor disturbance, no double vision Psychiatric: no anxiety, no sleep disturbances, no change in libido, no suicidal ideation, no depression, no anxiety attacks, no difficulties concentrating, no confusion, no mood swings, no other Endocrine: no cold intolerance, no polyphagia, no polydipsia, no polyuria, no nocturia, no proptosis, no deepening of the voice, no palpatations Hematologic/Lymphatic: no easy bruising, no easy bleeding, no lymphedema, no thrombophilia, no other Allergic/Immunologic: no allergic rhinitis, no wheezing, no persistent infections, no anaphylaxis, no gluten intolerance Exam - Constitutional Vitals: Temp Pulse Resp BP Pulse Ox 91 H 18 115/80 98 08/22/16 17:25 08/22/16 17:25 08/22/16 17:25 08/22/16 17:25 General appearance: Present: no acute distress, well-nourished - EENT Eyes: Present: PERRL ENT: hearing intact, clear oral mucosa - Neck Neck: Present: supple, normal ROM - Respiratory Respiratory effort: normal Respiratory: bilateral: CTA - Cardiovascular Heart Sounds: Present: S1 & S2. Absent: rub, click - Extremities Extremities: pulses symmetrical, No edema Peripheral Pulses: within normal limits - Abdominal General gastrointestinal: Present: soft, non-tender, non-distended, normal bowel sounds Male genitourinary: Present: normal - Integumentary Integumentary: Present: clear, warm, dry - Musculoskeletal Musculoskeletal: gait normal, strength equal bilaterally - Psychiatric Psychiatric: appropriate mood/affect, intact judgment & insight - Neurologic Neurologic: CNII-XII intact, moves all extremities Results - Labs CBC & Chem 7: 08/22/16 15:48 08/22/16 16:53 Labs: Laboratory Last Values WBC 3.6 K/mm3 (4.5-11.0) L 08/22/16 15:48 RBC 4.53 M/mm3 (3.65-5.03) 08/22/16 15:48 Hgb 14.0 gm/dl (11.8-15.2) 08/22/16 15:48 Hct 44.3 % (35.5-45.6) 08/22/16 15:48 MCV 98 fl (84-94) H 08/22/16 15:48 MCH 31 pg (28-32) 08/22/16 15:48 MCHC 32 % (32-34) 08/22/16 15:48 RDW 14.5 % (13.2-15.2) 08/22/16 15:48 Plt Count 212 K/mm3 (140-440) 08/22/16 15:48 Lymph % (Auto) 19.7 % (13.4-35.0) 08/22/16 15:48 [place] % (Auto) 7.6 % (0.0-7.3) H 08/22/16 15:48 Eos % (Auto) 0.9 % (0.0-4.3) 08/22/16 15:48 Baso % (Auto) 0.8 % (0.0-1.8) 08/22/16 15:48 Lymph # 0.7 K/mm3 (1.2-5.4) L 08/22/16 15:48 [place] # 0.3 K/mm3 (0.0-0.8) 08/22/16 15:48 Eos # 0.0 K/mm3 (0.0-0.4) 08/22/16 15:48 Baso # 0.0 K/mm3 (0.0-0.1) 08/22/16 15:48 Seg Neutrophils % 71.0 % (40.0-70.0) H 08/22/16 15:48 Seg Neutrophils # 2.6 K/mm3 (1.8-7.7) 08/22/16 15:48 VBG pH 7.286 (7.320-7.420) L 08/22/16 15:48 Sodium 129 mmol/L (137-145) L 08/22/16 16:53 Potassium 4.6 mmol/L (3.6-5.0) 08/22/16 16:53 Chloride 83.8 mmol/L (98-107) L 08/22/16 16:53 Carbon Dioxide 22 mmol/L (22-30) 08/22/16 16:53 Anion Gap 28 mmol/L 08/22/16 16:53 BUN 21 mg/dL (9-20) H 08/22/16 16:53 Creatinine 0.7 mg/dL (0.8-1.5) L 08/22/16 16:53 Estimated GFR > 60 ml/min 08/22/16 16:53 BUN/Creatinine Ratio 30.00 % 08/22/16 16:53 Glucose 806 mg/dL (75-100) H* 08/22/16 16:53 Calcium 9.1 mg/dL (8.4-10.2) 08/22/16 16:53 Phosphorus 4.8 mg/dL (2.5-4.5) H 08/22/16 16:53 Magnesium 1.8 mg/dL (1.7-2.3) 08/22/16 16:53 Urine Color Colorless (Yellow) 08/22/16 16:58 Urine Turbidity Clear (Clear) 08/22/16 16:58 Urine pH 5.0 (5.0-7.0) 08/22/16 16:58 Ur Specific [place] 1.020 (1.003-1.030) 08/22/16 16:58 Urine Protein <15 mg/dl mg/dL (Negative) 08/22/16 16:58 Urine Glucose (UA) >=500 mg/dL (Negative) 08/22/16 16:58 Urine Ketones 20 mg/dL (Negative) 08/22/16 16:58 Urine Blood Neg (Negative) 08/22/16 16:58 Urine Nitrite Neg (Negative) 08/22/16 16:58 Urine Bilirubin Neg (Negative) 08/22/16 16:58 Urine Urobilinogen < 2.0 mg/dL (<2.0) 08/22/16 16:58 Ur Leukocyte Esterase Neg (Negative) 08/22/16 16:58 Urine WBC (Auto) < 1.0 /HPF (0.0-6.0) 08/22/16 16:58 Urine RBC (Auto) 1.0 /HPF (0.0-6.0) 08/22/16 16:58 Ketones mmol/L (-0.28) 08/22/16 15:48 Assessment and Plan Advance Directives: Yes VTE prophylaxis?: Chemical Plan of care discussed with patient/family: Yes - Patient Problems (1) Diabetic ketoacidosis Current Visit: Yes Status: Acute Qualifiers: Diabetes mellitus type: type 1 Diabetes mellitus complication detail: without coma Qualified Code(s): E10.10 - Type 1 diabetes mellitus with ketoacidosis without coma Plan to address problem: Patient presents in diabetic acute acidosis secondary to noncompliance with insulin. Patient is a run out of Levemir and short-acting insulin. We'll place patient back on a long-acting insulin 60 units that she was taking. We' ll cover with sliding-scale insulin coverage in the rest of patient's workup once blood sugars are controlled can be done on outpatient basis. We'll monitor electrolytes aggressive IV fluid rate replacement. Follow magnesium and potassium calcium. Place patient on insulin drip. (2) High anion gap metabolic acidosis Current Visit: Yes Status: Acute Plan to address problem: Crees gap metabolic acidosis secondary to diabetic ketoacidosis. (3) Seizure Current Visit: Yes Status: Chronic Plan to address problem: Seizure did not see any evidence of a new seizure. This might be previous etiology old seizure disorder. Patient not able to perform extensive physical activity at this particular time. We'll get seizures much better control if she has had a seizure. We'll check Keppra level as well.
[2016-08-22 19:00] LABS: Anion Gap 27 mmol/L; BUN/Creatinine Ratio 27.14; Blood Urea Nitrogen 19 mg/dL (9-20); Calcium 9.1 mg/dL (8.4-10.2); Carbon Dioxide 20 mmol/L (22-30); Chloride 87.9 mmol/L (98-107); Potassium 3.5 mmol/L (3.6-5.0); Sodium 131 mmol/L (137-145)
[2016-08-22 19:04] LABS: Glucose 505 mg/dL (75-100)
[2016-08-22 19:09] LABS: Magnesium 1.8 mg/dL (1.7-2.3); Phosphorous 3.4 mg/dL (2.5-4.5)
[2016-08-22] MEDS ORDERED: D5W/0.45% NACL/KCL 20 MEQ 20 MEQ/1,000 ML BAG IV ONE (20:05)
[2016-08-22 20:52] LABS: Anion Gap 25 mmol/L; BUN/Creatinine Ratio 21.42; Blood Urea Nitrogen 15 mg/dL (9-20); Calcium 9.6 mg/dL (8.4-10.2); Carbon Dioxide 24 mmol/L (22-30); Chloride 93.3 mmol/L (98-107); Glucose 129 mg/dL (75-100); Potassium 3.5 mmol/L (3.6-5.0); Sodium 139 mmol/L (137-145)
[2016-08-22] MEDS ORDERED: D5W/0.45% NACL/KCL 20 MEQ 20 MEQ/1,000 ML BAG IV SCH (21:00)
[2016-08-22 23:16] LABS: Anion Gap 19 mmol/L; Blood Urea Nitrogen 15 mg/dL (9-20); Calcium 8.9 mg/dL (8.4-10.2); Carbon Dioxide 28 mmol/L (22-30); Chloride 96.4 mmol/L (98-107); Glucose 164 mg/dL (75-100); Potassium 3.7 mmol/L (3.6-5.0); Sodium 140 mmol/L (137-145)
[2016-08-23 03:17] LABS: Anion Gap 19 mmol/L; BUN/Creatinine Ratio 21.66; Blood Urea Nitrogen 13 mg/dL (9-20); Calcium 8.9 mg/dL (8.4-10.2); Carbon Dioxide 25 mmol/L (22-30); Chloride 98.9 mmol/L (98-107); Glucose 118 mg/dL (75-100); Potassium 3.3 mmol/L (3.6-5.0); Sodium 140 mmol/L (137-145)
[2016-08-23 05:25] LABS: Anion Gap 18 mmol/L; Blood Urea Nitrogen 12 mg/dL (9-20); Calcium 8.7 mg/dL (8.4-10.2); Carbon Dioxide 27 mmol/L (22-30); Chloride 96.2 mmol/L (98-107); Glucose 156 mg/dL (75-100); Potassium 3.7 mmol/L (3.6-5.0); Sodium 137 mmol/L (137-145)
--- NOTE | 2016-08-23 08:15 | Admit Criteria Form ---
Admission Criteria Documentation: DIABETES Clinical Indications for Admission to Inpatient Care (Place 'X' for any and all applicable criteria): Admission is indicated by presence of ALL (if I & II) or ANY ONE (if III or IV) of the following (1)(2)(3)(4): [ X]I. Diabetes is uncontrolled as indicated by ANY ONE of the following: [X ]a) Diabetic ketoacidosis as indicated by ALL of the following (8): [X ]i) Hyperglycemia (eg, plasma glucose greater than 200 mg /dL (11.1 mmol/L)) [X ]ii) Acidosis (eg, arterial pH less than 7.30, serum bicarbonate level less than 15 mEq/L (mmol/L)) [X ]iii) Moderate ketonuria or ketonemia [ ]b) Hyperglycemic hyperosmolar state as indicated by ALL of the following(9)(10): [ ]i) Neurologic dysfunction (eg, stupor, coma, hemiparesis , seizure)(13) [ ]ii) Plasma glucose greater than 600 mg/dL (33.3 mmol/L) [ ]iii) Serum osmolality greater than 320 mOsm/kg (mmol/kg) [X ]c) Severe signs or symptoms secondary to hyperglycemia indicated by ANY ONE of the following: [ ]i) Altered mental status(10) [ ]ii) Significant hypovolemia or dehydration [ ]iii) Intractable nausea or vomiting [ ]iv) Unexplained fever or severe infection [X ]v) Severe electrolyte abnormality (eg, hypokalemia, hyperkalemia, hypernatremia) [ ]II. Management at other levels of care (Also use Diabetes: Observation Care as appropriate) is not feasible because of ANY ONE of the following: [ ]a) Condition was not adequately corrected with treatment at other levels of care. [ ]b) Treatment at other levels of care is not appropriate because of condition severity (eg, hyperosmolar coma). [ ]III. Contraindications and/or Inappropriate clinical situations for Observational Care in patients with Diabetes, when ANY ONE of the following is required: [ ]a) Patient require specific diagnostic workup or therapeutic intervention 22 [ ]b) Patient with abnormal vital signs or altered mental status 23 [ ]IV. General contraindications and/or Inappropriate clinical situations for Observational Care in patients with Diabetes, when ANY ONE of the following is required: [ ]a) Prediction of prolongation of LOS based on ANY ONE of the following may be considered as a contraindication for observational care 2, 3, 4, 5, 6, 7, 8, 9, 10, 11 [ ]i) Age > 65 yrs. [ ]ii) Patient arriving by ambulance [ ]iii) Patient with high acuity [ ]iv) Patient requiring vital sign monitoring [ ]v) Patient on IV medication [ ]b) Systolic blood pressures 180mmHg 3,12 [ ]c) Patient with altered mental status including delirium and other alteration of consciousness, (3) [ ]d) Patient whose discharge disposition will be to a long term home or rehabilitation home should not be managed in Emergency Department Observation Unit. CMS rule requires 3 days hospital stay before such placement.3,13 [ ]e) Patient with failure to thrive due to broad array of etiologies 3,16,17 [ ]f) Inability to ambulate 3,14 Extended stay beyond goal length of stay may be needed for(3)(20): [ ]a) Treatment of precipitating causes [ ]b) Development of hypoglycemia [ ]c) Complications of treatment [ ]d) Complications of decompensated diabetes (eg, acute gastric dilatation, persistent metabolic or neurologic derangement) [ ]e) Active Comorbidities [ ]f) Older patients( 65 years or older) The original [employer] content created by [employer] has been revised. The portions of the content which have been revised are identified through the use of italic text or in bold,and [facility] has neither reviewed nor approved the modified material. All other unmodified content is copyright [employer]. Please see references footnoted in the original [facility] edition 2016 Admission Criteria Met: Yes
[2016-08-23] MEDS ORDERED: D50W (25GM) IV PRN (08:39)
[2016-08-23 09:07] LABS: Anion Gap 20 mmol/L; Blood Urea Nitrogen 12 mg/dL (9-20); Calcium 8.6 mg/dL (8.4-10.2); Carbon Dioxide 24 mmol/L (22-30); Chloride 97.1 mmol/L (98-107); Glucose 302 mg/dL (75-100); Potassium 4.1 mmol/L (3.6-5.0); Sodium 137 mmol/L (137-145)
[2016-08-23 10:35] LABS: Anion Gap 22 mmol/L; Blood Urea Nitrogen 12 mg/dL (9-20); Calcium 8.9 mg/dL (8.4-10.2); Carbon Dioxide 23 mmol/L (22-30); Chloride 92.1 mmol/L (98-107); Glucose 335 mg/dL (75-100); Potassium 4.3 mmol/L (3.6-5.0); Sodium 133 mmol/L (137-145)
[2016-08-23] MEDS ORDERED: NACL 0.9% 1000 ML 1,000 ML IV ONE (11:58)
--- NOTE | 2016-08-23 12:01 | Progress Note ---
Assessment and Plan Assessment and plan: --Diabetic ketoacidosis secondary to noncompliance On insulin drip, blood sugars reasonable control Start long-acting 7030, start ADA diet, DC insulin drip Rigorous IV hydration, Accu-Chek sliding scale coverage and ADA diet Closely monitor electrolytes and correct as needed Patient's hemoglobin A1c last month was 13 --History of seizure disorder Medical none complaints, questionable seizure episode Resume Keppra, seizure precautions, Ativan as needed --Medical noncompliance Patient has multiple social issues Counseling done patient strongly advised to adhere to the treatment and diet plan Verbalized understanding --DC planning per case management Closely monitor the patient had just the management as needed Diabetic education, nutrition consult Possible discharge in 1-2 days if stable History Interval history: Patient seen and evaluated in his room medical records reviewed Admitted with severe DKA on insulin drip, sugars are reasonable levels, and start long-acting insulin, ADA diet as tolerated And discontinue insulin drip Patient complains of mild nausea, irritated and uncooperative Alert and awake responding appropriately not in acute distress vital signs reviewed Hospitalist Physical - Constitutional Vitals: Temp Pulse Resp BP Pulse Ox 98.2 F 87 12 99/55 97 08/23/16 09:56 08/23/16 09:56 08/23/16 09:56 08/23/16 09:56 08/23/16 09:56 General appearance: Present: no acute distress, well-nourished - EENT Eyes: Present: PERRL, EOM intact - Neck Neck: Present: supple, normal ROM - Respiratory Respiratory effort: normal Respiratory: negative: rales, rhonchi, wheezing - Cardiovascular Rhythm: regular Heart Sounds: Present: S1 & S2 - Extremities Extremities: no ischemia, pulses intact, pulses symmetrical Peripheral Pulses: within normal limits - Abdominal General gastrointestinal: soft, non-tender, non-distended, normal bowel sounds - Integumentary Integumentary: Present: clear, warm - Psychiatric Psychiatric: appropriate mood/affect, cooperative - Neurologic Neurologic: CNII-XII intact, moves all extremities Results - Labs CBC & Chem 7: 08/22/16 15:48 08/23/16 10:02 Labs: Laboratory Last Values WBC 3.6 K/mm3 (4.5-11.0) L 08/22/16 15:48 RBC 4.53 M/mm3 (3.65-5.03) 08/22/16 15:48 Hgb 14.0 gm/dl (11.8-15.2) 08/22/16 15:48 Hct 44.3 % (35.5-45.6) 08/22/16 15:48 MCV 98 fl (84-94) H 08/22/16 15:48 MCH 31 pg (28-32) 08/22/16 15:48 MCHC 32 % (32-34) 08/22/16 15:48 RDW 14.5 % (13.2-15.2) 08/22/16 15:48 Plt Count 212 K/mm3 (140-440) 08/22/16 15:48 Lymph % (Auto) 19.7 % (13.4-35.0) 08/22/16 15:48 [place] % (Auto) 7.6 % (0.0-7.3) H 08/22/16 15:48 Eos % (Auto) 0.9 % (0.0-4.3) 08/22/16 15:48 Baso % (Auto) 0.8 % (0.0-1.8) 08/22/16 15:48 Lymph # 0.7 K/mm3 (1.2-5.4) L 08/22/16 15:48 [place] # 0.3 K/mm3 (0.0-0.8) 08/22/16 15:48 Eos # 0.0 K/mm3 (0.0-0.4) 08/22/16 15:48 Baso # 0.0 K/mm3 (0.0-0.1) 08/22/16 15:48 Seg Neutrophils % 71.0 % (40.0-70.0) H 08/22/16 15:48 Seg Neutrophils # 2.6 K/mm3 (1.8-7.7) 08/22/16 15:48 VBG pH 7.286 (7.320-7.420) L 08/22/16 15:48 Sodium 133 mmol/L (137-145) L 08/23/16 10:02 Potassium 4.3 mmol/L (3.6-5.0) 08/23/16 10:02 Chloride 92.1 mmol/L (98-107) L 08/23/16 10:02 Carbon Dioxide 23 mmol/L (22-30) 08/23/16 10:02 Anion Gap 22 mmol/L 08/23/16 10:02 BUN 12 mg/dL (9-20) 08/23/16 10:02 Creatinine 0.5 mg/dL (0.8-1.5) L 08/23/16 10:02 Estimated GFR > 60 ml/min 08/23/16 10:02 BUN/Creatinine Ratio 24.00 % 08/23/16 10:02 Glucose 335 mg/dL (75-100) H 08/23/16 10:02 POC Glucose 184 (70-105) H 08/23/16 11:54 Osmolality 331 Mosm/kg 08/22/16 16:53 Calcium 8.9 mg/dL (8.4-10.2) 08/23/16 10:02 Phosphorus 3.4 mg/dL (2.5-4.5) D 08/22/16 18:19 Magnesium 1.8 mg/dL (1.7-2.3) 08/22/16 18:19 Urine Color Colorless (Yellow) 08/22/16 16:58 Urine Turbidity Clear (Clear) 08/22/16 16:58 Urine pH 5.0 (5.0-7.0) 08/22/16 16:58 Ur Specific [place] 1.020 (1.003-1.030) 08/22/16 16:58 Urine Protein <15 mg/dl mg/dL (Negative) 08/22/16 16:58 Urine Glucose (UA) >=500 mg/dL (Negative) 08/22/16 16:58 Urine Ketones 20 mg/dL (Negative) 08/22/16 16:58 Urine Blood Neg (Negative) 08/22/16 16:58 Urine Nitrite Neg (Negative) 08/22/16 16:58 Urine Bilirubin Neg (Negative) 08/22/16 16:58 Urine Urobilinogen < 2.0 mg/dL (<2.0) 08/22/16 16:58 Ur Leukocyte Esterase Neg (Negative) 08/22/16 16:58 Urine WBC (Auto) < 1.0 /HPF (0.0-6.0) 08/22/16 16:58 Urine RBC (Auto) 1.0 /HPF (0.0-6.0) 03/19/17 16:58 Ketones mmol/L (-0.28) 08/22/16 15:48
[2016-08-23] MEDS: KEPPRA 1,000 MG in D5W 100 ML IV SCH ×2 (13:51→22:42)
[2016-08-23] MEDS: LOVENOX SUB-Q SCH (13:52)
[2016-08-23] MEDS: NOVOLOG SUB-Q SCH ×2 (13:53→18:41)
[2016-08-23] MEDS: NACL 0.9% 1000 ML 1,000 ML IV SCH (21:14)
[2016-08-23 22:26] LABS: Anion Gap 18 mmol/L; Blood Urea Nitrogen 9 mg/dL (9-20); Calcium 8.5 mg/dL (8.4-10.2); Carbon Dioxide 26 mmol/L (22-30); Chloride 96.5 mmol/L (98-107); Glucose 138 mg/dL (75-100); Potassium 3.6 mmol/L (3.6-5.0); Sodium 137 mmol/L (137-145)
[2016-08-24 06:42] LABS: Basophils % (Auto) 0.6 % (0.0-1.8); Eosinophils % (Auto) 1.8 % (0.0-4.3); Hematocrit 39.8 % (35.5-45.6); Hemoglobin 13.3 gm/dl (11.8-15.2); Mean Corpuscular HGB Conc 33 % (32-34); Mean Corpuscular Hemoglobin 31 pg (28-32); Platelet Count 202 K/mm3 (140-440); Red Blood Count 4.25 M/mm3 (3.65-5.03); Red Cell Distribution Width 13.8 % (13.2-15.2); White Blood Count 5.2 K/mm3 (4.5-11.0)
[2016-08-24 06:58] LABS: Mean Corpuscular Volume 96 fl (84-94)
[2016-08-24 06:59] LABS: Alanine Aminotransferase 44 units/L (7-56); Albumin 3.4 g/dL (3.9-5); Albumin/Globulin Ratio 1.5 %; Alkaline Phosphatase 89 units/L (35-129); Anion Gap 15 mmol/L; Bilirubin,Total 0.9 mg/dL (0.1-1.2); Blood Urea Nitrogen 8 mg/dL (9-20); Calcium 8.2 mg/dL (8.4-10.2); Carbon Dioxide 26 mmol/L (22-30); Chloride 100.5 mmol/L (98-107); Glucose 244 mg/dL (75-100); Magnesium 1.7 mg/dL (1.7-2.3); Potassium 3.5 mmol/L (3.6-5.0); Sodium 138 mmol/L (137-145); Total Protein 5.6 g/dL (6.3-8.2)
[2016-08-24] MEDS: NACL 0.9% 1000 ML 1,000 ML IV SCH ×2 (07:27→16:42)
[2016-08-24] MEDS ORDERED: K-DUR PO ONE (08:30)
[2016-08-24] MEDS: LOVENOX SUB-Q SCH (09:36)
[2016-08-24] MEDS: KEPPRA 1,000 MG in D5W 100 ML IV SCH (10:32)
--- NOTE | 2016-08-24 12:48 | Event Note ---
Date: 08/24/16 Patient originally admitted to the ICU for DKA management and consulted to pulmonary/critical care medicine. He was transferred out and at [facility] completing treatment. Since reason for your consult has subsided, we will see as needed. Feel free to reconsult if this is the case
--- NOTE | 2016-08-24 14:33 | Progress Note ---
Assessment and Plan Assessment and plan: --Diabetic ketoacidosis secondary to noncompliance off insulin drip, blood sugars reasonable control Continue 7030 insulin and just as needed ADA diet, Patient's hemoglobin A1c last month was 13 Diabetic education --History of seizure disorder Medical none complaints, questionable seizure episode Resume Keppra, seizure precautions, Ativan as needed --Medical noncompliance Patient has multiple social issues Counseling done patient strongly advised to adhere to the treatment and diet plan Verbalized understanding --DC planning per case management DC home tomorrow if stable Diabetic education, nutrition consult Patient's condition treatment plan discussed in detail with the patient as well as his nurse History Interval history: Patient seen and evaluated in his room this morning medical records reviewed Patient had an episode of hypoglycemia, insulin is adjusted Patient also complaints of intermittent mild dizziness Denies nausea vomiting or abdominal pain, tolerating diet Hospitalist Physical - Constitutional Vitals: Temp Pulse Resp BP Pulse Ox 98.3 F 94 H 18 103/61 100 08/23/16 23:13 08/23/16 23:13 08/23/16 23:13 08/23/16 23:13 08/23/16 23:13 General appearance: Present: no acute distress, well-nourished - EENT Eyes: Present: PERRL, EOM intact - Neck Neck: Present: supple, normal ROM - Respiratory Respiratory effort: normal Respiratory: bilateral: CTA, negative: rales, rhonchi, wheezing - Cardiovascular Rhythm: regular Heart Sounds: Present: S1 & S2 - Extremities Extremities: no ischemia, pulses intact, pulses symmetrical Peripheral Pulses: within normal limits - Abdominal General gastrointestinal: soft, non-tender, non-distended, normal bowel sounds - Integumentary Integumentary: Present: clear, warm - Psychiatric Psychiatric: appropriate mood/affect, cooperative - Neurologic Neurologic: CNII-XII intact, moves all extremities Results - Labs CBC & Chem 7: 08/24/16 05:56 08/24/16 05:56 Labs: Laboratory Last Values WBC 5.2 K/mm3 (4.5-11.0) 08/24/16 05:56 RBC 4.25 M/mm3 (3.65-5.03) 08/24/16 05:56 Hgb 13.3 gm/dl (11.8-15.2) 08/24/16 05:56 Hct 39.8 % (35.5-45.6) 08/24/16 05:56 MCV 96 fl (84-94) H 08/24/16 05:56 MCH 31 pg (28-32) 08/24/16 05:56 MCHC 33 % (32-34) 08/24/16 05:56 RDW 13.8 % (13.2-15.2) 08/24/16 05:56 Plt Count 202 K/mm3 (140-440) 08/24/16 05:56 Lymph % (Auto) 26.4 % (13.4-35.0) 08/24/16 05:56 [place] % (Auto) 9.6 % (0.0-7.3) H 08/24/16 05:56 Eos % (Auto) 1.8 % (0.0-4.3) 08/24/16 05:56 Baso % (Auto) 0.6 % (0.0-1.8) 08/24/16 05:56 Lymph # 1.4 K/mm3 (1.2-5.4) 08/24/16 05:56 [place] # 0.5 K/mm3 (0.0-0.8) 08/24/16 05:56 Eos # 0.1 K/mm3 (0.0-0.4) 08/24/16 05:56 Baso # 0.0 K/mm3 (0.0-0.1) 08/24/16 05:56 Seg Neutrophils % 61.6 % (40.0-70.0) 08/24/16 05:56 Seg Neutrophils # 3.2 K/mm3 (1.8-7.7) 08/24/16 05:56 VBG pH 7.286 (7.320-7.420) L 08/22/16 15:48 Sodium 138 mmol/L (137-145) 08/24/16 05:56 Potassium 3.5 mmol/L (3.6-5.0) L 08/24/16 05:56 Chloride 100.5 mmol/L (98-107) 08/24/16 05:56 Carbon Dioxide 26 mmol/L (22-30) 08/24/16 05:56 Anion Gap 15 mmol/L 08/24/16 05:56 BUN 8 mg/dL (9-20) L 08/24/16 05:56 Creatinine 0.5 mg/dL (0.8-1.5) L 08/24/16 05:56 Estimated GFR > 60 ml/min 08/24/16 05:56 BUN/Creatinine Ratio 16.00 % 08/24/16 05:56 Glucose 244 mg/dL (75-100) H 08/24/16 05:56 POC Glucose 110 (70-105) H 08/24/16 12:09 Osmolality 331 Mosm/kg 08/22/16 16:53 Calcium 8.2 mg/dL (8.4-10.2) L 08/24/16 05:56 Phosphorus 3.4 mg/dL (2.5-4.5) D 08/22/16 18:19 Magnesium 1.7 mg/dL (1.7-2.3) 08/24/16 05:56 Total Bilirubin 0.9 mg/dL (0.1-1.2) 08/24/16 05:56 AST 23 units/L (5-40) 08/24/16 05:56 ALT 44 units/L (7-56) 08/24/16 05:56 Alkaline Phosphatase 89 units/L (35-129) 08/24/16 05:56 Total Protein 5.6 g/dL (6.3-8.2) L 08/24/16 05:56 Albumin 3.4 g/dL (3.9-5) L 08/24/16 05:56 Albumin/Globulin Ratio 1.5 % 08/24/16 05:56 Urine Color Colorless (Yellow) 08/22/16 16:58 Urine Turbidity Clear (Clear) 08/22/16 16:58 Urine pH 5.0 (5.0-7.0) 08/22/16 16:58 Ur Specific [place] 1.020 (1.003-1.030) 08/22/16 16:58 Urine Protein <15 mg/dl mg/dL (Negative) 08/22/16 16:58 Urine Glucose (UA) >=500 mg/dL (Negative) 08/22/16 16:58 Urine Ketones 20 mg/dL (Negative) 08/22/16 16:58 Urine Blood Neg (Negative) 08/22/16 16:58 Urine Nitrite Neg (Negative) 08/22/16 16:58 Urine Bilirubin Neg (Negative) 08/22/16 16:58 Urine Urobilinogen < 2.0 mg/dL (<2.0) 08/22/16 16:58 Ur Leukocyte Esterase Neg (Negative) 08/22/16 16:58 Urine WBC (Auto) < 1.0 /HPF (0.0-6.0) 08/22/16 16:58 Urine RBC (Auto) 1.0 /HPF (0.0-6.0) 08/22/16 16:58 Ketones mmol/L (-0.28) 08/22/16 15:48
[2016-08-25] MEDS: KEPPRA PO SCH ×2 (00:24→09:51)
[2016-08-25] MEDS: NACL 0.9% 1000 ML 1,000 ML IV SCH (02:24)
[2016-08-25] MEDS: LOVENOX SUB-Q SCH (09:51)
--- NOTE | 2016-08-25 10:53 | Discharge Summary ---
Providers - Providers Date of Admission: 08/22/16 17:51 Attending physician: CHAPARRO DUQUE Primary care physician: INFORMATION MANAGEMENT OFFICER Hospitalization Condition: Fair Disposition: DISCHARGED TO HOME OR SELFCARE Core Measure Documentation - Palliative Care Palliative Care/ Comfort Measures: Not Applicable - Core Measures Any of the following diagnoses?: none Exam - Constitutional Vitals: Temp Pulse Resp BP Pulse Ox 98.1 F 92 H 18 117/71 98 08/24/16 23:00 08/24/16 23:00 08/24/16 23:00 08/24/16 23:00 08/24/16 23:00 General appearance: Present: no acute distress, well-nourished - EENT Eyes: Present: PERRL, EOM intact - Neck Neck: Present: supple, normal ROM - Respiratory Respiratory effort: normal Respiratory: negative: diminished, rales, rhonchi - Cardiovascular Rhythm: regular Heart Sounds: Present: S1 & S2 - Extremities Extremities: no ischemia, pulses intact, pulses symmetrical Peripheral Pulses: within normal limits - Abdominal General gastrointestinal: Present: soft, non-tender, non-distended, normal bowel sounds - Integumentary Integumentary: Present: clear, warm - Musculoskeletal Musculoskeletal: strength equal bilaterally, generalized weakness - Psychiatric Psychiatric: appropriate mood/affect, cooperative Plan Activity: no restrictions, other (seizure precautions) Diet: diabetic Additional Instructions: Strongly advised to comply with medications and diet. Advised to see private facilities mechanical design engineer in the sugars are not under control Follow up with: PRIMARY CARE, [Primary Care Provider] - 3-5 Days Prescriptions: Insulin NPH/Regular [NovoLIN 70/30] 15 unit SUB-Q BIDDIAB 30 Days Insulin Regular, Human [HumuLIN R] 3 units SUB-Q ACHS 30 Days levETIRAcetam [Keppra TAB] 1,000 mg PO BID #60 tablet
[2016-08-25 15:27] VITALS: BP 117/71
== END 2016-08-25 15:21 | disposition home or self-care (01) | DRG 639 ==
LOC: ED 15:26 → CC1 17:51 → 3A 08-23 08:52
PROVIDERS: ADMIT Internal Medicine; ATTEND Internal Medicine
DX: E10.10 Type 1 diabetes mellitus with ketoacidosis without coma (principal); G40.909 Epilepsy, unspecified, not intractable, without status epilepticus; E10.65 Type 1 diabetes mellitus with hyperglycemia; Z91.14 Patient's other noncompliance with medication regimen; Z86.69 Personal history of other diseases of the nervous system and sense organs; Z79.4 Long term (current) use of insulin; Z83.3 Family history of diabetes mellitus
CPT/HCPCS: 36415; 80048; 80053; 80177; 81001; 82010; 82805; 82962; 83735; 83930; 84100; 85025; 96361; 96374; 96375; J1650; J1815; J1953; J7030